=== PATIENT | male | born 1965 | race Caucasian/White ===

== ENCOUNTER 2021-11-23 12:55 | Inpatient (IN) | payer OTHER ==
[~2021-11-23] VITALS: Ht 170.2 cm; Wt 80.8 kg
[2021-11-23 13:45] LABS: BASOPHILS ABSOLUTE AUTO 0.04 K/mm3 (0.00-0.23); BASOPHILS PERCENT AUTO 0 % (0-2); EOSINOPHILS ABSOLUTE AUTO 0.05 K/mm3 (0.00-0.68); EOSINOPHILS PERCENT AUTO 0 % (0-6); Hematocrit 38.7 % (37.0-53.0); Hemoglobin 12.6 g/dL (13.5-17.5); IMMATURE GRAN ABSOLUTE AUTO 0.09 K/mm3 (0.00-0.10); IMMATURE GRAN PERCENT AUTO 1 % (0-1); LYMPHOCYTES ABSOLUTE AUTO 1.59 K/mm3 (0.84-5.20); LYMPHOCYTES PERCENT AUTO 14 % (21-46); MONOCYTES ABSOLUTE AUTO 0.85 K/mm3 (0.16-1.47); MONOCYTES PERCENT AUTO 8 % (4-13); Mean Corpuscular HGB 28.2 pg (26.0-34.0); Mean Corpuscular HGB Conc 32.6 g/dL (31.5-36.5); Mean Corpuscular Volume 87 fL (80-100); Mean Platelet Volume 9.5 fL (9.1-12.4); NEUTROPHILS ABSOLUTE AUTO 8.68 K/mm3 (1.96-9.15); NEUTROPHILS PERCENT AUTO 77 % (41-73); Platelet Count 322 K/mm3 (150-400); RDW Coefficient Variation 12.3 % (11.7-14.2); RDW Standard Deviation 39.1 fL (35.1-46.3); Red Blood Cell Count 4.47 M/mm3 (4.30-5.90)
[2021-11-23 14:10] LABS: Anti-Xa UFH, PHA Monitoring <0.10 IU/mL; International Normalized Ratio 0.98; Prothrombin Time Results 10.3 Sec (9.7-11.5)
[2021-11-23 14:16] LABS: Anion Gap 6 mmol/L (6-16); Blood Urea Nitrogen 23 mg/dL (8-24); Bun/Creatinine Ratio 26.8 (12.0-20.0); CO2, Blood 25 mmol/L (21-32); Calcium, Blood 8.8 mg/dL (8.5-10.1); Chloride, Blood 96 mmol/L (98-108); Creatinine, Blood 0.86 mg/dL (0.60-1.20); Glomerular Filtration Rate >60 (60-); Glucose, Blood 433 mg/dL (70-99); Potassium, Blood 4.2 mmol/L (3.5-5.5); Sodium, Blood 127 mmol/L (136-145)
--- NOTE | 2021-11-23 18:40 | NUR ---
ADMISSION/SHIFT SUMMARY NOTE PT ARRIVED TO PCU FROM ED APPROX 1620, HE IS ALERT AND ORIENTED X 4, SPO2 >95% VIA RA. PT REPORTED PAIN 10/10 UPON ARRIVAL, SEE EMAR FOR PAIN MANAGEMENT. HEPARIN DRIP IS INFUSING PER EMAR ORDERS AT 18UNITS/KG/HR. TELE MONITORING IN PLACE, PT IS SINUS RYTHM 90-110'S. HE DENIED FEELINGS OF CHEST PAIN/PRESSURE AND INDICATED THAT PAIN IS ON RIGHT SIDE OF ABD. PT DENIED FEELINGS OF NAUSEA/VOMITTING. HE CAN VOID USING BEDSIDE URINAL PER REPORT BUT NO OUTPUT NOTED BY THIS NURSE SINCE ARRIVAL TO PCU. SCABS ARE SCATTERED T/O, PATIENT REPORTED THAT WHEN HE IS ANXIOUS, HE PICKS AT HIS SKIN. HE HAS ACHS CBG MONITORING, DR BENNETT CALLED BY THIS NURSE FOR INSULIN COVERAGE, SEE EMAR FOR ORDERS. INSULIN HAS YET TO ARRIVE FROM PHARMACY TO TREAT CBG OF 344. WILL PASS ON TO REPORT. WILL CONTINUE TO MONITOR UNTIL REPORT GIVEN. CALL LIGHT IN REACH.
--- NOTE | 2021-11-24 05:31 | NUR ---
End of shift summary:\ Pt with 10/10 pain to R- Flank, worsens with inspiration, VSS, 2L NC placed over noc for Sleep apnea, otheriwse room air when awake. Hep gtt still infusing, will continue to monitor Jluis Talavera RN
[2021-11-24 06:13] LABS: Hematocrit 35.4 % (37.0-53.0); Hemoglobin 11.5 g/dL (13.5-17.5); Mean Corpuscular HGB 28.2 pg (26.0-34.0); Mean Corpuscular HGB Conc 32.5 g/dL (31.5-36.5); Mean Corpuscular Volume 87 fL (80-100); Mean Platelet Volume 9.5 fL (9.1-12.4); Platelet Count 280 K/mm3 (150-400); RDW Coefficient Variation 12.4 % (11.7-14.2); RDW Standard Deviation 39.5 fL (35.1-46.3); Red Blood Cell Count 4.08 M/mm3 (4.30-5.90)
[2021-11-24 06:39] LABS: Anion Gap 7 mmol/L (6-16); Blood Urea Nitrogen 29 mg/dL (8-24); Bun/Creatinine Ratio 25.2 (12.0-20.0); CO2, Blood 27 mmol/L (21-32); Calcium, Blood 8.7 mg/dL (8.5-10.1); Chloride, Blood 96 mmol/L (98-108); Creatinine, Blood 1.15 mg/dL (0.60-1.20); Glomerular Filtration Rate >60 (60-); Glucose, Blood 298 mg/dL (70-99); Sodium, Blood 130 mmol/L (136-145)
--- NOTE | 2021-11-24 16:14 | NUR ---
SHIFT SUMMARY Pt os a/o x 4 and has c/o right chest/flank pain r/t his PE. He remains on RA with sats in the high 90's and the heparin drip is infusing per pharmacy. He uses the urinal at the beside and was assisted with a bedbath this morning. His sister came to visit this afternoon and he has updated her. He has a good appetite and his blood sugars continue o run high but he reports that this is normal for him and is asymptomatic. He is able to make his needs known and has his call light in reach.
--- NOTE | 2021-11-25 06:31 | NUR ---
SHIFT SUMMARY PT ALERT AND ORIENTED X4. HR ST 100-130'S. 100'S TO START SHIFT BUT INCREASINGLY TACHY. MEDICATED X2 5MG IV LOPRESSOR. AFEBRILE. ON 3L MAINTAINS SATS OVER 92%. DESATS TO MID TO LOW 80'S ON RA. ANXIOUS AT TIMES THROUGHOUT THE NIGHT. FREQUENTLY PULLING OUT O2, TELEMETRY, AND IVS. C/O 10/10 PLEURITIC AND R FLANK PAIN. UNRELIEVED BY PERCOCET OR FENTANYL. RELIEF WITH DILAUDID. HEP GTT INFUSING. IN BED RESTING WITH CALL ALARM AT SIDE. WILL CONTINUE TO MONITOR UNTIL REPORT GIVEN TO DAYSHIFT RN
[2021-11-25 08:29] LABS: BASOPHILS ABSOLUTE AUTO 0.02 K/mm3 (0.00-0.23); BASOPHILS PERCENT AUTO 0 % (0-2); EOSINOPHILS ABSOLUTE AUTO 0.07 K/mm3 (0.00-0.68); EOSINOPHILS PERCENT AUTO 1 % (0-6); Hematocrit 37.8 % (37.0-53.0); Hemoglobin 12.2 g/dL (13.5-17.5); IMMATURE GRAN PERCENT AUTO 1 % (0-1); LYMPHOCYTES ABSOLUTE AUTO 1.28 K/mm3 (0.84-5.20); LYMPHOCYTES PERCENT AUTO 11 % (21-46); MONOCYTES ABSOLUTE AUTO 0.86 K/mm3 (0.16-1.47); MONOCYTES PERCENT AUTO 7 % (4-13); Mean Corpuscular HGB 27.8 pg (26.0-34.0); Mean Corpuscular HGB Conc 32.3 g/dL (31.5-36.5); Mean Corpuscular Volume 86 fL (80-100); Mean Platelet Volume 9.3 fL (9.1-12.4); NEUTROPHILS ABSOLUTE AUTO 9.69 K/mm3 (1.96-9.15); NEUTROPHILS PERCENT AUTO 81 % (41-73); Platelet Count 355 K/mm3 (150-400); RDW Coefficient Variation 12.4 % (11.7-14.2); RDW Standard Deviation 39.3 fL (35.1-46.3); Red Blood Cell Count 4.39 M/mm3 (4.30-5.90); White Blood Cell Count 12.02 K/mm3 (4.00-11.30)
[2021-11-25 08:46] LABS: Anion Gap 6 mmol/L (6-16); Blood Urea Nitrogen 34 mg/dL (8-24); Bun/Creatinine Ratio 27.9 (12.0-20.0); CO2, Blood 28 mmol/L (21-32); Calcium, Blood 9.1 mg/dL (8.5-10.1); Chloride, Blood 98 mmol/L (98-108); Creatinine, Blood 1.22 mg/dL (0.60-1.20); Glomerular Filtration Rate >60 (60-); Glucose, Blood 168 mg/dL (70-99); Phosphorus, Blood 2.8 mg/dL (2.5-4.9); Potassium, Blood 4.3 mmol/L (3.5-5.5); Sodium, Blood 132 mmol/L (136-145)
--- NOTE | 2021-11-25 13:44 | NUR ---
SUMMARY OF CARE Pt is a/o x 4 with ongoing c/o pain to right flank/chest. He has been medicated per Emar. He has required supplemental O2 today continued from last night and is currently on 4 LPM with sats in the mid to high 90's. He has been pulling off his o2 at times and he does desat without the NC but as soon as he puts it back on he recovers quickly. He has also been tachy and Dr Cross was made aware of these changes. Dr Sanford stopped by and gave orders for an EKG which was done and he said he would be reviewing the chart. Pt has a decent appetite but CBGs continue to be elevated and covered with his sliding scale. He uses the urinal at the bedside. He calls appropriately and has his call light in reach. Report given to receiving RN.
--- NOTE | 2021-11-25 14:10 | NUR ---
ASSUMED CARE OF PATIENT. PT RESTING IN BED, UP TO SIDE OF BED WITH URINAL. CONTINUES WITH COMPLAINT OF RIGHT FLANK/CHEST PAIN, WILL MEDICATED PER EMAR. PT A&Ox4, COOPERATIVE WITH CARE. PT ON 4L O2 VIA NC, SPO2 98-100%. TELE SINUS 80-90'S AT THIS TIME. WILL CONTINUE TO MONITOR
[2021-11-26 02:28] LABS: Hematocrit 34.5 % (37.0-53.0); Mean Corpuscular HGB 28.1 pg (26.0-34.0); Mean Corpuscular HGB Conc 31.9 g/dL (31.5-36.5); Mean Corpuscular Volume 88 fL (80-100); Mean Platelet Volume 9.6 fL (9.1-12.4); Platelet Count 344 K/mm3 (150-400); RDW Coefficient Variation 12.7 % (11.7-14.2); RDW Standard Deviation 40.7 fL (35.1-46.3); Red Blood Cell Count 3.92 M/mm3 (4.30-5.90); White Blood Cell Count 11.07 K/mm3 (4.00-11.30)
--- NOTE | 2021-11-26 05:48 | NUR ---
SHIFT SUMMARY [id number] PT SLEPT WELL OVERNIGHT, VSS PER PT TREND. ST ON TELEMETRY. ON 4L NC, ORIENTED X4. HEPARIN GTT RUNNING PER PROVIDER ORDER WITHOUT INTERRUPTION. COMPLAINTS OF R PLEURITIC CHEST PAIN PT REPORTS UNCHANGED FROM ADMISSION. PRN PAIN MEDICATIONS GIVEN WITH RELIEF - SEE EMAR FOR DETAILS. BEDREST. CALL LIGHT WITHIN REACH. WILL CONTINUE TO MONITOR AND PASS ON TO DAY RN.
--- NOTE | 2021-11-26 18:06 | NUR ---
Shift summary: Pt remains A&Ox4. VSS. C/o R pleuritic pain- Dilaudid x3 and Tylenol x1, adequate control of pain per pt. Afebrile. AUO. NO BM. Tolerating current diet. Heparin gtt increased and bolus administered x1 d/t AM hep Xa level- no s/s of bleeding noted. /2 (+) MD ALEX notified and abx adjusted. Weaned supplemental O2 from 4L NC to 2L NC- pt denies any respiratory distress. Frequent rounds to ensure pt safety. Pt encouraged to reposition q2hrs and pressure points offloaded to prevent pressure ulcers, pt verbalized understanding. Pt in no apparent distress at this time. Will continue to monitor until transfer of care to oncoming RN.
[2021-11-27 05:07] LABS: Hematocrit 32.9 % (37.0-53.0); Hemoglobin 10.5 g/dL (13.5-17.5); Mean Corpuscular HGB 28.1 pg (26.0-34.0); Mean Corpuscular HGB Conc 31.9 g/dL (31.5-36.5); Mean Corpuscular Volume 88 fL (80-100); Mean Platelet Volume 9.9 fL (9.1-12.4); Platelet Count 365 K/mm3 (150-400); RDW Coefficient Variation 12.7 % (11.7-14.2); RDW Standard Deviation 40.6 fL (35.1-46.3); Red Blood Cell Count 3.74 M/mm3 (4.30-5.90); White Blood Cell Count 11.25 K/mm3 (4.00-11.30)
[2021-11-27 05:32] LABS: Albumin, Blood 1.6 g/dL (3.4-5.0); Anion Gap 7 mmol/L (6-16); Blood Urea Nitrogen 20 mg/dL (8-24); Bun/Creatinine Ratio 20.6 (12.0-20.0); CO2, Blood 26 mmol/L (21-32); Calcium, Blood 8.9 mg/dL (8.5-10.1); Chloride, Blood 101 mmol/L (98-108); Creatinine, Blood 0.97 mg/dL (0.60-1.20); Glomerular Filtration Rate >60 (60-); Glucose, Blood 174 mg/dL (70-99); Phosphorus, Blood 2.9 mg/dL (2.5-4.9); Potassium, Blood 4.6 mmol/L (3.5-5.5); Sodium, Blood 134 mmol/L (136-145)
--- NOTE | 2021-11-27 06:05 | NUR ---
SHIFT SUMMARY PT SLEPT INTERMITTENTLY, ORIENTED X4, IRRITABLE AT TIMES. HR IN 110S-130S. DR. MONIQUE NOTIFIED OVERNIGHT OF HR CONSISTENTLY IN 130S AND INCREASE TO 8L HFNC PER RT MANAGEMENT FOR DESATURATION. OTHER VSS. ORDER FOR IV LOPRESSOR X1 (SEE CRITICAL VALUE NOTIFICATION AND EMAR FOR DETAILS). PAIN CONTROLLED WITH PO PAIN MEDS. WILL CONTINUE TO MONITOR CLOSELY AND PASS ON TO DAY RN.
[2021-11-27 08:46] LABS: PCO2 Arterial 39.1 mmHg (35-45); PO2 Arterial 60.2 mmHg (80-100); pH Blood Arterial 7.45 (7.35-7.45)
--- NOTE | 2021-11-27 17:32 | NUR ---
Shift summary: Pt remains A&Ox4, anxious at times. Afebrile. Frequent c/o R sided pleuritic pain- Diluadid x2 and Tylenol x2, adequate control of pain per pt. AUO. No BM- c/o constipation, yet refusing Miralax. Tolerating current diet. Xarelto to be started tonight at 18:00, heparin gtt will be discontinued at that time- no current s/s of bleeding noted. Weaned from 8L NC to RA- no s/s of respiratory distress, [place]. Tentative d/c home tomorrow. Frequent rounds to ensure pt safety. Pt encouraged to reposition q2hrs and offload pressure points to prevent pressure ulcers, pt verbalized understanding. Pt in no apparent distress at this time. Will continue to monitor until transfer of care to oncoming RN.
[2021-11-28 05:45] LABS: Hematocrit 31.9 % (37.0-53.0); Hemoglobin 10.1 g/dL (13.5-17.5); Mean Corpuscular HGB 27.9 pg (26.0-34.0); Mean Corpuscular HGB Conc 31.7 g/dL (31.5-36.5); Mean Corpuscular Volume 88 fL (80-100); Mean Platelet Volume 9.4 fL (9.1-12.4); Platelet Count 363 K/mm3 (150-400); RDW Coefficient Variation 12.7 % (11.7-14.2); RDW Standard Deviation 41.5 fL (35.1-46.3); Red Blood Cell Count 3.62 M/mm3 (4.30-5.90); White Blood Cell Count 9.42 K/mm3 (4.00-11.30)
[2021-11-28] MEDS ORDERED: AZIT500 PO (11:13)
[2021-11-28] MEDS ORDERED: HYDMOR2 PO (11:14)
[2021-11-28] MEDS ORDERED: HUMALOG KW100 UNIT/1 SC (11:18)
[2021-11-28] MEDS ORDERED: XARELTO20 MG PO ×2 (11:20→11:21)
[2021-11-28] MEDS ORDERED: LACT PO (11:23)
[2021-11-28] MEDS ORDERED: Ventolin5 MG/1 ML INH (11:24)
[2021-11-28] MEDS ORDERED: CEFD300 PO (11:25)
--- NOTE | 2021-11-28 18:43 | NUR ---
Shift summary: Pt remains A&Ox4. Afebrile.VSS. C/o R sided pleuritic pain- Dilaudid x2, adequate control of pain per pt. BRP with AUO. No BM. Tolerating current diet. Home O2 eval completed, supplies delivered to pt's room. Pending discharge home, awaiting taxi ride time. Discharge education provided, pt verbalized understanding. Frequent rounds to ensure pt safety. Pt encouraged to reposition q2hrs and offload pressure points to prevent pressure ulcers, pt verbalized understanding. Pt in no apparent distress at this time. Will continue to monitor until transfer of care.
--- NOTE | 2021-11-28 19:00 | NUR ---
Discharge Delay: Message left for child day care teacher at 1300 in attempts to coordinate home oxygen to be set up. Some time later the child day care teacher called the primary RN back, she stated the patient needed different ICD 10 code to qualify him for the home oxygen because the insurance would only cover a portion of the home oxygen and the patient was only able to afford about one month of the cost-per child day care teacher. About an hour later I communicated the barriers to discharge to Dr. Cross and asked if she could coordinate with the Folder Gluer Operator to assist her with order completion and any clarifying questions she may have. A few hours after this I called the care mamsunil to inquire as to the status of the home oxygen being set up, by this time it was around 1600 or 1630. She stated she was sending the orders over to [facility] for the oxygen to be set up. Around 1700 the oxygen was delivered. The dry charge process attendant attempted to set up a ride home through [facility], at 1900 this service was still unable to provide details as to why we didn't have transportation set up or an ETA on when we would have transportation available.
--- NOTE | 2021-11-28 21:25 | NUR ---
Pt discharged ~2119 with all belongings and after visit summary/ scripts. VSS, adequate for discharge
== END 2021-11-28 21:19 | disposition home or self-care (01) | DRG 175 ==
LOC: ER 12:55 → PCU 15:23
PROVIDERS: Emergency Medicine; ADMIT Internal Medicine
DX: I26.92 Saddle embolus of pulmonary artery without acute cor pulmonale (principal); J96.01 Acute respiratory failure with hypoxia; A41.9 Sepsis, unspecified organism; J18.9 Pneumonia, unspecified organism; E87.1 Hypo-osmolality and hyponatremia; Z66 Do not resuscitate; I95.9 Hypotension, unspecified; E11.9 Type 2 diabetes mellitus without complications; M19.90 Unspecified osteoarthritis, unspecified site; I25.10 Atherosclerotic heart disease of native coronary artery without angina pectoris; G43.909 Migraine, unspecified, not intractable, without status migrainosus; F17.210 Nicotine dependence, cigarettes, uncomplicated; F32.A Depression, unspecified; Z86.73 Personal history of transient ischemic attack (TIA), and cerebral infarction without residual deficits; Z85.828 Personal history of other malignant neoplasm of skin; I25.2 Old myocardial infarction; Z95.1 Presence of aortocoronary bypass graft; Z90.49 Acquired absence of other specified parts of digestive tract; Z98.890 Other specified postprocedural states; Z79.4 Long term (current) use of insulin; Z79.899 Other long term (current) drug therapy
CPT/HCPCS: 36415; 36600; 71046; 80048; 80069; 82803; 82947; 83036; 83605; 83880; 83930; 84145; 84484; 85025; 85027; 85520; 85610; 85730; 87040; 87077; 87186; 90686; 93005; 93010; 93306; 94760; 94761; 96365; 99285-25; A9270; C1751; J0456; J0696; J1170; J1644; J1815; J1885; J2405; J3010; J3370; J7050

== ENCOUNTER → 2021-11-23 | Outpatient (CLI) | payer OTHER ==
[~2021-11-23] MED LIST: ACET325 PO; AMIT10 PO; ANTOXYBENA BOTHEARS; ASPI325 PO; ASPI81CH PO; ASPI81EC PO; ATEN25 PO; ATOR10 PO; ATOR20 PO; ATOR40TA PO; ATOR80 PO; Aspirin325 MG PO; BACPOLTO30 TOP; BASAGLAR K100 UNIT/1 SC; BENZ1 PO; Bactrim Ds Tab1 EACH PO; CAND16 PO; CARV3.125 PO; CARV6.25 PO; CEFAZOLIN2 GM/50 M3 IV; CEPH500 PO; CLON2 PO; CLOP75 PO; CYCL10 PO; Ciprodex Otic7.5 ML BOTHEARS; DIAZ2 PO; DIAZ5 PO; DICY20 PO; ELIQUIS5 MG PO; GLIM2 PO; HALO5 PO; HYDACE10B PO; HYDACE5 PO; HYDMOR2; HYDMOR2 PO; HYDPAM50 PO; IBUP600 PO; IBUP800 PO; INDO50 PO; INSUASPI; INSUASPI SUBQ; INSULANI SC; INSULANPEN SC; INSULANPEN SQ; KETO10 PO; LISHYD1012 PO; LORA.5 PO; LORA1 PO; LORA2 PO; Lantus100 UNIT/1 SC; Lisinopril2.5 MG PO; MECL25 PO; METO25ER PO; METO50 PO; METO50ER PO; MUPI2TO TOP; NAPR500 PO; NEBI5 PO; NICO21TP TOP; NITR.4SL SL; NITR.6SL SL; Naprosyn500 MG PO; OMEP10ER PO; OXYACE5T PO; OXYACE7.5T PO; PARO20 PO; PROM25 PO; QUET200 PO; QUET25 PO; QUET300 PO; ROXICODONE5 MG PO; RXTRAM50 PO; SULTRIDS PO; TRAM50 PO; Ultram50 MG PO; VISBIOME PROBIOTIC PO; [UNRECOGNIZED DRUG - REMARK]; [UNRECOGNIZED DRUG - REMARK]
[2021-11-23 10:50] LABS: BASOPHILS ABSOLUTE AUTO 0.04 K/mm3 (0.00-0.23); BASOPHILS PERCENT AUTO 0 % (0-2); EOSINOPHILS ABSOLUTE AUTO 0.07 K/mm3 (0.00-0.68); EOSINOPHILS PERCENT AUTO 1 % (0-6); Hematocrit 39.4 % (37.0-53.0); Hemoglobin 13.1 g/dL (13.5-17.5); IMMATURE GRAN ABSOLUTE AUTO 0.12 K/mm3 (0.00-0.10); IMMATURE GRAN PERCENT AUTO 1 % (0-1); LYMPHOCYTES ABSOLUTE AUTO 1.59 K/mm3 (0.84-5.20); LYMPHOCYTES PERCENT AUTO 14 % (21-46); MONOCYTES PERCENT AUTO 7 % (4-13); Mean Corpuscular HGB 28.4 pg (26.0-34.0); Mean Corpuscular HGB Conc 33.2 g/dL (31.5-36.5); Mean Corpuscular Volume 85 fL (80-100); Mean Platelet Volume 9.3 fL (9.1-12.4); NEUTROPHILS ABSOLUTE AUTO 8.54 K/mm3 (1.96-9.15); NEUTROPHILS PERCENT AUTO 77 % (41-73); Platelet Count 335 K/mm3 (150-400); RDW Coefficient Variation 12.4 % (11.7-14.2); RDW Standard Deviation 38.3 fL (35.1-46.3); Red Blood Cell Count 4.62 M/mm3 (4.30-5.90); White Blood Cell Count 11.16 K/mm3 (4.00-11.30)
[2021-11-23 11:00] LABS: Alanine Aminotransfer (ALT/SGP 19 U/L (12-78); Albumin, Blood 2.5 g/dL (3.4-5.0); Albumin/Globulin Ratio 0.5 (0.8-1.8); Alk Phos 173 U/L (40-126); Anion Gap 8 mmol/L (6-16); Aspartate Aminotrans (AST/SGOT 11 U/L (12-37); Bilirubin, Total 0.4 mg/dL (0.1-1.0); Blood Urea Nitrogen 24 mg/dL (8-24); Bun/Creatinine Ratio 19.8 (12.0-20.0); CO2, Blood 26 mmol/L (21-32); Calcium, Blood 9.4 mg/dL (8.5-10.1); Chloride, Blood 92 mmol/L (98-108); Creatinine, Blood 1.21 mg/dL (0.60-1.20); Globulin, Blood 5.4 g/dL (2.2-4.0); Glomerular Filtration Rate >60 (60-); Glucose, Blood 494 mg/dL (70-99); Potassium, Blood 4.4 mmol/L (3.5-5.5); Sodium, Blood 126 mmol/L (136-145); Total Protein, Blood 7.9 g/dL (6.4-8.2)
== END ==
LOC: LAB SHORT 10:45
PROVIDERS: Physician Assistant
DX: R07.89 Other chest pain (principal)
CPT/HCPCS: 80053; 84484; 85025; 85379

== ENCOUNTER → 2022-06-25 | Outpatient (CLI) | payer OTHER ==
[~2022-06-25] MED LIST changes: +AZIT500 PO; +CEFD300 PO; +HUMALOG KW100 UNIT/1 SC; +LACT PO; +Ventolin5 MG/1 ML INH; +XARELTO20 MG PO
== END | disposition home or self-care (01) ==
LOC: LAB SHORT 17:26 → LAB 17:26
DX: L02.811 Cutaneous abscess of head [any part, except face] (principal)
CPT/HCPCS: 87070; 87075; 87077; 87147; 87186; 87205

== ENCOUNTER 2023-03-24 12:09 | Emergency (ER) | payer OTHER ==
[~2023-03-24] VITALS: Ht 170.2 cm; Wt 90.7 kg
[2023-03-24] MEDS ORDERED: SULFAMETHOXAZO1 EAC1 PO (12:21)
[2023-03-24] MEDS ORDERED: IBU800 M1 PO (12:21)
[2023-03-24 12:55] LABS: BASOPHILS ABSOLUTE AUTO 0.02 K/mm3 (0.00-0.23); BASOPHILS PERCENT AUTO 0 % (0-2); EOSINOPHILS ABSOLUTE AUTO 0.07 K/mm3 (0.00-0.68); EOSINOPHILS PERCENT AUTO 1 % (0-6); Hematocrit 39.9 % (37.0-53.0); Hemoglobin 12.7 g/dL (13.5-17.5); IMMATURE GRAN ABSOLUTE AUTO 0.03 K/mm3 (0.00-0.10); IMMATURE GRAN PERCENT AUTO 0 % (0-1); LYMPHOCYTES ABSOLUTE AUTO 0.96 K/mm3 (0.84-5.20); LYMPHOCYTES PERCENT AUTO 14 % (21-46); MONOCYTES ABSOLUTE AUTO 0.54 K/mm3 (0.16-1.47); MONOCYTES PERCENT AUTO 8 % (4-13); Mean Corpuscular HGB 27.6 pg (26.0-34.0); Mean Corpuscular HGB Conc 31.8 g/dL (31.5-36.5); Mean Corpuscular Volume 87 fL (80-100); Mean Platelet Volume 10.1 fL (9.1-12.4); NEUTROPHILS ABSOLUTE AUTO 5.25 K/mm3 (1.96-9.15); NEUTROPHILS PERCENT AUTO 76 % (41-73); Platelet Count 240 K/mm3 (150-400); RDW Coefficient Variation 13.2 % (11.7-14.2); RDW Standard Deviation 41.2 fL (35.1-46.3); White Blood Cell Count 6.87 K/mm3 (4.00-11.30)
[2023-03-24 13:14] LABS: Albumin, Blood 2.2 g/dL (3.4-5.0); Albumin/Globulin Ratio 0.5 (0.8-1.8); Bilirubin, Total 0.1 mg/dL (0.1-1.0); Bun/Creatinine Ratio 18.5 (12.0-20.0); Calcium, Blood 8.4 mg/dL (8.5-10.1); Creatinine, Blood 2.16 mg/dL (0.60-1.20); Globulin, Blood 4.6 g/dL (2.2-4.0); Potassium, Blood 5.3 mmol/L (3.5-5.5); Total Protein, Blood 6.8 g/dL (6.4-8.2)
[2023-03-24 16:19] VITALS: BP 78/66
== END 2023-03-24 16:23 | disposition home or self-care (01) ==
LOC: ER 12:09
PROVIDERS: Emergency Medicine
DX: R07.2 Precordial pain (principal); N17.9 Acute kidney failure, unspecified; L03.116 Cellulitis of left lower limb; E11.9 Type 2 diabetes mellitus without complications; E78.5 Hyperlipidemia, unspecified; I10 Essential (primary) hypertension; I25.2 Old myocardial infarction; F17.210 Nicotine dependence, cigarettes, uncomplicated; Z86.711 Personal history of pulmonary embolism; Z86.73 Personal history of transient ischemic attack (TIA), and cerebral infarction without residual deficits; Z88.5 Allergy status to narcotic agent; Z79.4 Long term (current) use of insulin
CPT/HCPCS: 71045; 71260; 80053; 83880; 84484; 85025; 93005; 93010; 96374-59; 99285-25; J3010; J7030; Q9967

== ENCOUNTER 2023-03-31 12:31 | Inpatient (IN) | payer OTHER ==
[~2023-03-31] VITALS: Ht 170.2 cm; Wt 95.7 kg
[~2023-03-31 12:31] MED LIST changes: +IBU800 M1 PO; +SULFAMETHOXAZO1 EAC1 PO
[2023-03-31 15:18] LABS: BASOPHILS ABSOLUTE AUTO 0.03 K/mm3 (0.00-0.23); BASOPHILS PERCENT AUTO 1 % (0-2); EOSINOPHILS ABSOLUTE AUTO 0.06 K/mm3 (0.00-0.68); EOSINOPHILS PERCENT AUTO 1 % (0-6); Hematocrit 46.2 % (37.0-53.0); Hemoglobin 14.5 g/dL (13.5-17.5); IMMATURE GRAN ABSOLUTE AUTO 0.05 K/mm3 (0.00-0.10); IMMATURE GRAN PERCENT AUTO 1 % (0-1); LYMPHOCYTES ABSOLUTE AUTO 1.25 K/mm3 (0.84-5.20); LYMPHOCYTES PERCENT AUTO 19 % (21-46); MONOCYTES ABSOLUTE AUTO 0.41 K/mm3 (0.16-1.47); MONOCYTES PERCENT AUTO 6 % (4-13); Mean Corpuscular HGB 27.3 pg (26.0-34.0); Mean Corpuscular HGB Conc 31.4 g/dL (31.5-36.5); Mean Corpuscular Volume 87 fL (80-100); Mean Platelet Volume 10.1 fL (9.1-12.4); NEUTROPHILS ABSOLUTE AUTO 4.82 K/mm3 (1.96-9.15); NEUTROPHILS PERCENT AUTO 73 % (41-73); Platelet Count 265 K/mm3 (150-400); RDW Coefficient Variation 13.7 % (11.7-14.2); RDW Standard Deviation 43.5 fL (35.1-46.3); Red Blood Cell Count 5.31 M/mm3 (4.30-5.90); White Blood Cell Count 6.62 K/mm3 (4.00-11.30)
[2023-03-31 15:25] LABS: Albumin, Blood 2.7 g/dL (3.4-5.0); Albumin/Globulin Ratio 0.6 (0.8-1.8); Bilirubin, Total 0.2 mg/dL (0.1-1.0); Bun/Creatinine Ratio 23.4 (12.0-20.0); Calcium, Blood 8.8 mg/dL (8.5-10.1); Creatinine, Blood 1.37 mg/dL (0.60-1.20); Globulin, Blood 4.6 g/dL (2.2-4.0); Potassium, Blood 5.4 mmol/L (3.5-5.5); Total Protein, Blood 7.3 g/dL (6.4-8.2)
[2023-03-31 19:47] VITALS: BP 152/100
[2023-03-31] MEDS ORDERED: CODACE30 PO (20:03)
[2023-03-31] MEDS ORDERED: IBU800 M1 (20:03)
[2023-03-31] MEDS ORDERED: [UNRECOGNIZED DRUG - CODE] (20:04)
[2023-04-01] VITALS (13 sets, daily range): BP systolic 88–167; BP diastolic 59–107
[2023-04-01 03:48] LABS: Hematocrit 40.5 % (37.0-53.0); Hemoglobin 12.8 g/dL (13.5-17.5); Mean Corpuscular HGB 27.1 pg (26.0-34.0); Mean Corpuscular HGB Conc 31.6 g/dL (31.5-36.5); Mean Corpuscular Volume 86 fL (80-100); Mean Platelet Volume 9.2 fL (9.1-12.4); Platelet Count 255 K/mm3 (150-400); RDW Coefficient Variation 13.5 % (11.7-14.2); RDW Standard Deviation 42.2 fL (35.1-46.3); Red Blood Cell Count 4.73 M/mm3 (4.30-5.90); White Blood Cell Count 5.82 K/mm3 (4.00-11.30)
[2023-04-01 04:05] LABS: Calcium, Blood 8.6 mg/dL (8.5-10.1); Creatinine, Blood 1.5 mg/dL (0.60-1.20); Potassium, Blood 4.2 mmol/L (3.5-5.5)
--- NOTE | 2023-04-01 06:16 | NUR ---
SHIFT SUMMARY ADMIT FOR LEFT FOOT ULCER W/ SURGICAL CONSULT. HX OF DIABETIC NEUROPATHY AND MRSA. PT REPORTS MINIMAL FEELING TO BLL FEET AND WAS UNAWARE OF WOUND. CULTURE OBTAINED. PT MEDICATED W/ LASIX PRIOR TO ADMIT TO FLOOR W/ GOOD URINE OUTPUT AND HAS ALLOWED PT TO SLEEP T/O NIGHT. 4+ EDEMA TO BLLE AND SCROTAL SWELLING/ EDEMA NOTED. PT REPORTS SCROTAL EDEMA NEW OF 03/30 AND ABDOMINAL DISTENTION NOTED. PT REPORTS EXTENSIVE CARDIAC HX. A&OX4, CURRENT SMOKER AND INFORMED OF FACILITY IGNITION POLICIES IN PLACE. CALL LIGHT W/IN REACH. WILL REPORT OFF TO ONCOMING SHIFT.
--- NOTE | 2023-04-01 11:28 | NUR ---
PT OUT OF ROOM FOR PROCEDURE.
--- NOTE | 2023-04-01 11:49 | NUR ---
PT HAS 20G IV TO RIGHT FOREARM THAT FLUSHES WELL AND FLOWS TO GRAVITY.
--- NOTE | 2023-04-01 13:24 | NUR ---
PATIENT CAME BACK FROM PACU TODAY AT 1330. POD 0 LEFT ANKLE I&D PATIENT IS A&OX4. VS ARE WNL AND IS ON RA. PATIENT DENIES PAIN OR NAUSEA AT THIS TIME. HIS LEFT ANKLE HAS A HARD SPLINT WITH RICHARD WRAP THAT IS C/D/I. HE IS ABLE TO MOVE ALL FINGERS AND TOES WHEN ASKED. DENIES NUMBNESS OR TINGLING IN ALL EXTREMITIES. HE IS TOLERATING SMALL AMOUNTS OF PO INTAKE AT THIS TIME. HE IS LAYING IN BED WITH CALL LIGHT IN REACH.
--- NOTE | 2023-04-01 14:12 | NUR ---
POST OP SHOE PROVIDED TO PATIENT. EDUCATED ON USE. PT VERBALIZES UNDERSTANDING AND IS USING AT THIS TIME. CONTINUES TO DENY PAIN.
--- NOTE | 2023-04-01 16:57 | NUR ---
SHIFT SUMMARY S/P I&D L FOOT. PT HAS BEEN UP AND AMBULATING WITH POST OP BOOT ON. PAIN CONTROLLED PER EMAR. PT DENIES ANY FURTHER NEEDS. NUMBNESS TO BLE AT BASELINE AT THIS TIME. IND IN ROOM VOIDING, TOLERATING PO WELL. THERAPY IN TO SEE PATIENT TODAY. IV ABX INFUSING PER ORDERS
[2023-04-01 22:09] LABS: HEMOGLOBIN A1C 11.2 % (4.8-5.6)
[2023-04-02 00:24] VITALS: BP 151/95
[2023-04-02 04:09] VITALS: BP 141/84
[2023-04-02 04:14] LABS: BASOPHILS ABSOLUTE AUTO 0.03 K/mm3 (0.00-0.23); BASOPHILS PERCENT AUTO 1 % (0-2); EOSINOPHILS ABSOLUTE AUTO 0.13 K/mm3 (0.00-0.68); EOSINOPHILS PERCENT AUTO 2 % (0-6); Hematocrit 41.7 % (37.0-53.0); Hemoglobin 13.6 g/dL (13.5-17.5); IMMATURE GRAN ABSOLUTE AUTO 0.03 K/mm3 (0.00-0.10); IMMATURE GRAN PERCENT AUTO 1 % (0-1); LYMPHOCYTES ABSOLUTE AUTO 1.71 K/mm3 (0.84-5.20); LYMPHOCYTES PERCENT AUTO 28 % (21-46); MONOCYTES ABSOLUTE AUTO 0.47 K/mm3 (0.16-1.47); MONOCYTES PERCENT AUTO 8 % (4-13); Mean Corpuscular HGB 27.3 pg (26.0-34.0); Mean Corpuscular HGB Conc 32.6 g/dL (31.5-36.5); Mean Corpuscular Volume 84 fL (80-100); Mean Platelet Volume 9.2 fL (9.1-12.4); NEUTROPHILS ABSOLUTE AUTO 3.74 K/mm3 (1.96-9.15); NEUTROPHILS PERCENT AUTO 61 % (41-73); Platelet Count 258 K/mm3 (150-400); RDW Coefficient Variation 13.3 % (11.7-14.2); RDW Standard Deviation 39.8 fL (35.1-46.3); Red Blood Cell Count 4.98 M/mm3 (4.30-5.90); White Blood Cell Count 6.11 K/mm3 (4.00-11.30)
[2023-04-02 04:49] LABS: Albumin, Blood 2.3 g/dL (3.4-5.0); Anion Gap 5 mmol/L (6-16); Blood Urea Nitrogen 24 mg/dL (8-24); Bun/Creatinine Ratio 15.3 (12.0-20.0); CO2, Blood 31 mmol/L (21-32); Calcium, Blood 8.6 mg/dL (8.5-10.1); Chloride, Blood 101 mmol/L (98-108); Creatinine, Blood 1.57 mg/dL (0.60-1.20); Glomerular Filtration Rate 51 (60-); Glucose, Blood 130 mg/dL (70-99); Magnesium, Blood 1.3 mg/dL (1.6-2.4); Phosphorus, Blood 4.1 mg/dL (2.5-4.9); Potassium, Blood 3.7 mmol/L (3.5-5.5); Sodium, Blood 137 mmol/L (136-145)
--- NOTE | 2023-04-02 05:33 | NUR ---
SHIFT SUMMARY PT A&OX4, AND COOPERATIVE WITH CARE. NO ACUTE CHANGES. MEDICATING FOR PAIN WITH PO DILAUDID/TYLENOL. TOLERATING PO INTAKE. VOIDING LARGE AMOUNTS OF YELLOW/CLEAR URINE. INDEPENDENT IN ROOM/BATHROOM. RICHARD WRAP/LING TO L FOOT C/D/I. CALLS APPROPRIATELY, CALL LIGHT WITHIN REACH.
[2023-04-02 07:16] VITALS: BP 114/75
--- NOTE | 2023-04-02 10:00 | NUR ---
PT ASSESSED FOR IGNITION SOURCES, NO FINDINGS.
[2023-04-02 14:17] VITALS: BP 126/80
--- NOTE | 2023-04-02 16:48 | NUR ---
SHIFT SUMMARY PT IS POD#1 FROM L FOOD I&D. PT IS A SBA WHEN OOB. PAIN MANAGED WITH PO PAIN MEDICATION. PT IS GETTING IV ABX. NO CHANGES TO REPORT THIS SHIFT. WILL MONITOR UNTIL REPORT TO PHU PHILLIPS.
[2023-04-02 19:40] VITALS: BP 138/98
[2023-04-03 03:32] VITALS: BP 120/71
--- NOTE | 2023-04-03 04:26 | NUR ---
SHIFT SUMMARY PT HAS RESTED MOST OF THE NIGHT, POD 1 I&D OF LEFT FOOT. AFFECTED FOOT WRAPPED WITH RICHARD WRAP, C/D/I. PT REPORTS N/T IN BOTH FEET AT BASELINE. PT HAS BEEN INDEPENDENT IN THE ROOM. VITALS STABLE. IV ANTIBIOTICS CONTINUED. FIRE RISK ASSESSED THIS SHIFT. PT EDUCATED ON FIRE RISKS AND IGNITION SOURCES. PT DENIES HAVING IGNITION SOURCES.
[2023-04-03 05:45] LABS: Albumin, Blood 2.3 g/dL (3.4-5.0); Anion Gap 6 mmol/L (6-16); Blood Urea Nitrogen 23 mg/dL (8-24); Bun/Creatinine Ratio 15.6 (12.0-20.0); CO2, Blood 30 mmol/L (21-32); Calcium, Blood 8.5 mg/dL (8.5-10.1); Chloride, Blood 102 mmol/L (98-108); Creatinine, Blood 1.47 mg/dL (0.60-1.20); Glomerular Filtration Rate 55 (60-); Glucose, Blood 92 mg/dL (70-99); Magnesium, Blood 1.7 mg/dL (1.6-2.4); Phosphorus, Blood 3.8 mg/dL (2.5-4.9); Potassium, Blood 3.8 mmol/L (3.5-5.5); Sodium, Blood 138 mmol/L (136-145)
[2023-04-03 07:40] VITALS: BP 152/99
--- NOTE | 2023-04-03 10:30 | NUR ---
FIRE SAFETY EDUCATION PT EDUCATED ON FIRE SAFETY. VERBALIZED UNDERSTANDING. DENIES POSSESSION OF ANY LIGHTERS, MATCHES, CIGARETTES, ETC.
[2023-04-03 12:42] VITALS: BP 143/94
[2023-04-03 15:35] VITALS: BP 156/98
--- NOTE | 2023-04-03 16:50 | NUR ---
SUMMARY NO ACUTE CHANGES T/O SHIFT. PT NOTED TO BE OOB W/O POST OP SHOE. PT EDUCATED ON NEED FOR USING POST OP SHOE WHEN AMBULATING OR TRANSFERRING. PT VERBALIZED UNDERSTANDING. INEPENDENT IN ROOM. CALL LIGHT IN REACH.
[2023-04-03 20:31] VITALS: BP 133/87
[2023-04-04 04:21] VITALS: BP 142/87
[2023-04-04 04:47] LABS: Hematocrit 43.7 % (37.0-53.0); Hemoglobin 13.6 g/dL (13.5-17.5); Mean Corpuscular HGB 26.8 pg (26.0-34.0); Mean Corpuscular HGB Conc 31.1 g/dL (31.5-36.5); Mean Corpuscular Volume 86 fL (80-100); Mean Platelet Volume 9.6 fL (9.1-12.4); Platelet Count 232 K/mm3 (150-400); RDW Coefficient Variation 13.2 % (11.7-14.2); RDW Standard Deviation 41.2 fL (35.1-46.3); Red Blood Cell Count 5.08 M/mm3 (4.30-5.90); White Blood Cell Count 5.74 K/mm3 (4.00-11.30)
[2023-04-04 05:15] LABS: Calcium, Blood 8.9 mg/dL (8.5-10.1); Creatinine, Blood 1.33 mg/dL (0.60-1.20); Potassium, Blood 3.7 mmol/L (3.5-5.5)
[2023-04-04 07:11] VITALS: BP 122/83
--- NOTE | 2023-04-04 07:52 | NUR ---
SUMMARY NO ACUTE CHANGES .
[2023-04-04 15:16] VITALS: BP 148/97
--- NOTE | 2023-04-04 19:48 | NUR ---
SHIFT SUMMARY POD3 L FOOT I&D, A/OX4, VSS, TOLERATING PO, PAIN MANAGED PER EMAR, INDEPENDENT IN THE ROOM, CARDIOLOGY CONSULTED TODAY. DISCUSSED THE CLEAN AIR ACT OF 1980 WHICH PROHIBITS SMOKING INDOORS IN [place], PT IS A SMOKING BUT DENIES HAVING ANY IGNITION SOURCES ON HIM CURRENTLY. CURRENTLY REFUSING NICOTINE PATCH HE SAYS THEY MAKE HIM LOOPY. NO ACUTE EVENTS THIS SHIFT, CALL LIGHT IN REACH, REPORT GIVEN TO PHU PHILLIPS.
[2023-04-04 20:16] VITALS: BP 146/94
[2023-04-05 04:03] VITALS: BP 157/99
--- NOTE | 2023-04-05 05:10 | NUR ---
EOS NOTE: PATIENT A/OX4, INDEPENDENT IN THE ROOM, ROOM AIR, CONTINENT OF BOWEL AND BLADDER. DRESSING CHANGED TO L FOOT X3 THIS SHIFT, PATIENT STATED IT KEPT FALLING OFF. REPLACED PER MD ORDER, DRESSING TO BE CHANGED EVERY OTHER DAY OR PRN. PATIENT STATED CURRENT PAIN MEDICATION ORDERS DO NOT ADEQUATELY TREAT HIS PAIN, PATIENT DID REST QUIETLY THROUGHOUT THE NIGHT. REQUESTED PAIN MEDICATION ONCE, SEE MAR FOR PAIN MED ADMINISTRATION. PATIENT VERY ADAMANTON DISCHARGING TODAY. MD AWARE, WILL CONTINUE TO MONITOR.
[2023-04-05 07:24] VITALS: BP 148/102
[2023-04-05] MEDS ORDERED: ASPI81CH PO (12:13)
[2023-04-05] MEDS ORDERED: CARV3.125 PO (12:14)
[2023-04-05] MEDS ORDERED: ATOR80 PO (12:14)
[2023-04-05] MEDS ORDERED: CLOP75 PO (12:15)
[2023-04-05] MEDS ORDERED: GABA300 PO (12:15)
[2023-04-05] MEDS ORDERED: HYDMOR2 PO (12:16)
[2023-04-05] MEDS ORDERED: LISI5 PO (12:16)
[2023-04-05] MEDS ORDERED: CEPHALEXIN125 MG/5 M PO (12:17)
--- NOTE | 2023-04-05 12:46 | NUR ---
DISCHARGE SUMMARY POD4 L FOOT I&D, A/O X4, VSS, TOLERATING PO, PAIN WELL MANAGED, INDEPENDENT IN HIS ROOM, L FOOT DRESSING CHANGED OUT WITH NEW KERLEX AND RICHARD WRAP, PT PROVIDED EXTRA DRESSING SUPPLIES IN CASE HE NEEDS TO CHANGE IT AT HOME. PT IS A SMOKER BUT HAS GRACIOUSLY AGREED TO ABSTAIN FROM SMOKING IN OUR FACILITY SO HE REMAINS COMPLIANT WITH THE CLEAN AIR ACT OF 1980 THAT PROHIBITS SMOKING IN DOORS IN [place]. NO IGNITION SOURCES NOTED AND NONE BEING HELD IN HIS LOCK BOX. DISCUSSED DISCHARGE INFORMATION WITH THE PATIENT INCLUDING HOME CARE, MEDICATIONS WHICH WERE FAXED TO [facility] IN [place], AND FOLLOW UP APPOINTMENTS WITH PODIETRY. IV ACCESS REMOVED, PT REPORTS DESIRE TO SMOKE AND EAT ORANGE CHICKEN BUT WILL WAIT TILL HE GETS HOME. NO QUESTIONS AT THIS TIME, ESCORTED OUT VIA WC TO PRIVATE AUTO TO GO HOME.
== END 2023-04-05 13:03 | disposition home or self-care (01) | DRG 628 ==
LOC: ER 12:31 → SURS 12:32
PROVIDERS: Emergency Medicine; Internal Medicine; Physician Assistant; Podiatrist; ADMIT Internal Medicine
PROC: 0H9NXZZ Drainage of Left Foot Skin, External Approach (ICD-10-PCS; 2023-04-01)
PROC: 0QBP0ZZ Excision of Left Metatarsal, Open Approach (ICD-10-PCS; principal; 2023-04-01 12:00)
DX: E11.621 Type 2 diabetes mellitus with foot ulcer (principal); I50.21 Acute systolic (congestive) heart failure; L03.116 Cellulitis of left lower limb; E11.42 Type 2 diabetes mellitus with diabetic polyneuropathy; I11.0 Hypertensive heart disease with heart failure; M19.90 Unspecified osteoarthritis, unspecified site; E78.5 Hyperlipidemia, unspecified; F31.9 Bipolar disorder, unspecified; E87.5 Hyperkalemia; L97.522 Non-pressure chronic ulcer of other part of left foot with fat layer exposed; I34.0 Nonrheumatic mitral (valve) insufficiency; I25.5 Ischemic cardiomyopathy; F17.210 Nicotine dependence, cigarettes, uncomplicated; J44.9 Chronic obstructive pulmonary disease, unspecified; I25.10 Atherosclerotic heart disease of native coronary artery without angina pectoris; N17.9 Acute kidney failure, unspecified; B95.61 Methicillin susceptible Staphylococcus aureus infection as the cause of diseases classified elsewhere; E11.649 Type 2 diabetes mellitus with hypoglycemia without coma; E83.42 Hypomagnesemia; Z79.4 Long term (current) use of insulin; Z88.5 Allergy status to narcotic agent; Z79.01 Long term (current) use of anticoagulants; Z79.899 Other long term (current) drug therapy; I25.2 Old myocardial infarction; Z86.711 Personal history of pulmonary embolism; Z95.5 Presence of coronary angioplasty implant and graft; Z86.73 Personal history of transient ischemic attack (TIA), and cerebral infarction without residual deficits; Z95.1 Presence of aortocoronary bypass graft; Z98.890 Other specified postprocedural states; Z86.59 Personal history of other mental and behavioral disorders; Z90.49 Acquired absence of other specified parts of digestive tract
CPT/HCPCS: 36415; 71045; 73620; 73701; 80048; 80053; 80069; 82947; 83036; 83735; 83880; 85025; 85027; 87040; 87070; 87071; 87075; 87077; 87147; 87186; 87205; 93306; 94760; 96365-59; 96366; 96375; 96375-59; 96376; 97116; 97162; 97530; 99285-25; A9270; G0378; J0690; J1650; J1815; J1940; J2001; J2250; J2543; J2704; J2795; J3010; J3475; J7030; J7042; J7050; J7120; Q9967

== ENCOUNTER 2023-06-20 15:18 | Inpatient (IN) | payer OTHER ==
[~2023-06-20] VITALS: Ht 170.2 cm; Wt 90.3 kg
[~2023-06-20 15:18] MED LIST changes: +CEPHALEXIN125 MG/5 M PO; +CODACE30 PO; +GABA300 PO; +IBU800 M1; +LISI5 PO; +[UNRECOGNIZED DRUG - CODE]
[2023-06-20 16:29] LABS: BASOPHILS ABSOLUTE AUTO 0.02 K/mm3 (0.00-0.23); BASOPHILS PERCENT AUTO 0 % (0-2); EOSINOPHILS ABSOLUTE AUTO 0.02 K/mm3 (0.00-0.68); EOSINOPHILS PERCENT AUTO 0 % (0-6); Hemoglobin 15.5 g/dL (13.5-17.5); IMMATURE GRAN ABSOLUTE AUTO 0.05 K/mm3 (0.00-0.10); IMMATURE GRAN PERCENT AUTO 1 % (0-1); LYMPHOCYTES ABSOLUTE AUTO 0.79 K/mm3 (0.84-5.20); LYMPHOCYTES PERCENT AUTO 7 % (21-46); MONOCYTES ABSOLUTE AUTO 0.77 K/mm3 (0.16-1.47); MONOCYTES PERCENT AUTO 7 % (4-13); Mean Corpuscular Volume 85 fL (80-100); Mean Platelet Volume 10.4 fL (9.1-12.4); NEUTROPHILS ABSOLUTE AUTO 9.37 K/mm3 (1.96-9.15); NEUTROPHILS PERCENT AUTO 85 % (41-73); Platelet Count 241 K/mm3 (150-400); RDW Coefficient Variation 13.2 % (11.7-14.2); Red Blood Cell Count 5.53 M/mm3 (4.30-5.90); White Blood Cell Count 11.02 K/mm3 (4.00-11.30)
[2023-06-20 16:48] LABS: C-REACTIVE PROTEIN, EXT RANGE 6.97 mg/dL (0.000-0.300)
[2023-06-20 16:50] LABS: Albumin, Blood 2.5 g/dL (3.4-5.0); Albumin/Globulin Ratio 0.4 (0.8-1.8); Bilirubin, Total 0.4 mg/dL (0.1-1.0); Bun/Creatinine Ratio 19.6 (12.0-20.0); Calcium, Blood 9.3 mg/dL (8.5-10.1); Creatinine, Blood 1.12 mg/dL (0.60-1.20); Globulin, Blood 6.7 g/dL (2.2-4.0); Potassium, Blood 4.9 mmol/L (3.5-5.5); Total Protein, Blood 9.2 g/dL (6.4-8.2)
[2023-06-20] MEDS ORDERED: ROSUVASTATIN CA20 MG PO (20:18)
[2023-06-20 21:01] VITALS: BP 105/74
[2023-06-21] VITALS (7 sets, daily range): BP systolic 81–154; BP diastolic 60–110
--- NOTE | 2023-06-21 04:46 | NUR ---
SHIFT SUMMARY 57 YR M ADMITTED ON 06/20/23 FOR DIABETIC ULCER OF L FOOT. DNR. NO ACUTE CHANGES THIS SHIFT. PT C/O LEFT FOOT PAIN AND WAS MEDICATED PER EMAR. WOUND ON LEFT LATERAL FOOT AND BETWEEN GREAT AND 4TH TOE OF LEFT FOOT WERE DRESSED W/ GAUZE FOR PROTECTION. PT IS A&O X 4 AND IS PLEASANT AND COOPERATIVE W/ CARE. HE IS USING THE URINAL AT BEDSIDE TO PREVENT WALKING ON HIS FOOT. PLAN IS FOR DR. LEGGETT TO DO DEBRIEDMENT SURGERY SOMETIME THIS WEEK.
[2023-06-21 05:51] LABS: Bun/Creatinine Ratio 12.7 (12.0-20.0); Calcium, Blood 8.8 mg/dL (8.5-10.1); Creatinine, Blood 1.97 mg/dL (0.60-1.20); Potassium, Blood 4.9 mmol/L (3.5-5.5)
--- NOTE | 2023-06-21 19:54 | NUR ---
SHIFT SUMMARY PT A&OX4 AND COOPERATIVE OF CARE. PT'S BP WAS LOW IN THE MORNING AND BP MEDS WERE HELD. DR PINO NOTIFIED AND PT STARTED ON SLOW RATE OF FLUIDS. BP ELEVATED IN AFTERNOON. BP MEDICATIONS GIVEN PER EMAR. DR PINO NOTIFIED. PT C/O PAIN IN LOWER LEFT LEG T/O DAY. MEDICATED PER EMAR. ICE PACK OFFERED BUT PT DECLINED STATING IT DOES NOT HELP. DR BRAVO INTO SEE PT IN AFTERNOON AND PLAN IS FOR LEFT 5TH LITTLE TOE AMPUATION TOMORROW. PT TO BE NPO AT MIDNIGHT. PT HAD VERY LITTLE URINE OUTPUT TODAY. PT WAS ABLE TO VOID 150 IN EVENING. BED IN LOWEST POSITION AND CALL LIGHT IN REACH.
[2023-06-22] VITALS (37 sets, daily range): BP systolic 71–134; BP diastolic 55–110
--- NOTE | 2023-06-22 04:34 | NUR ---
SHIFT SUMMARY 57 YR M ADMITTED ON 06/20/23 FOR LEFT FOOT DIABETIC ULCER AND CELLULITIS. DNR. NO ACUTE CHANGES THIS SHIFT. PT WAS UP TO BEDSIDE COMMODE FOR A BM BUT HE WAS NOT ABLE TO GO. HE BUMPED HIS LEFT FOOT GETTING BACK INTO BED CAUSING HIM A GREAT DEAL OF PAIN. PLAN IS FOR AMPUTATION OF 5TH METATARSAL ON LEFT FOOT THIS A.M. PT HAS BEEN NPO SINCE MIDNIGHT. HE HAS SLEPT FOR MOST OF THE NIGHT THUS FAR AND HAS ONLY REQUESTED PAIN MEDS ONCE EARLY IN THE SHIFT.
[2023-06-22 05:08] LABS: Mean Corpuscular HGB 27.4 pg (26.0-34.0); Mean Corpuscular HGB Conc 31.7 g/dL (31.5-36.5); Mean Corpuscular Volume 86 fL (80-100); Mean Platelet Volume 10.9 fL (9.1-12.4); Platelet Count 218 K/mm3 (150-400); RDW Coefficient Variation 13.2 % (11.7-14.2); RDW Standard Deviation 41.5 fL (35.1-46.3); Red Blood Cell Count 4.75 M/mm3 (4.30-5.90); White Blood Cell Count 10.14 K/mm3 (4.00-11.30)
[2023-06-22 05:34] LABS: Bun/Creatinine Ratio 14.4 (12.0-20.0); Calcium, Blood 8.7 mg/dL (8.5-10.1); Creatinine, Blood 3.27 mg/dL (0.60-1.20); Potassium, Blood 5.3 mmol/L (3.5-5.5)
--- NOTE | 2023-06-22 13:07 | NUR ---
Arrived to Day Surgery by beau. History, Chart, Medications and Allergies reviewed before start of procedure. Patient confirms NPO status and agrees with scheduled surgery. Pre-Op teaching done. Pt verbalizes understanding.
--- NOTE | 2023-06-22 13:20 | NUR ---
CALL TO DR PINO, DISCUSSED THAT THIS RN HELD GLARGENE THIS AM DUE TO A SHARP DECREASE FROM HS. DECREASED THE DAILY AMOUNT AND FIRST DOSE NOW. ALSO NOTIFIED THAT BP WAS LOW AND MEDS HELD. INSTRUCTED TO RECHECK BP AND GIVE IF SPB OVER 110. SBP WAS 98, DID NOT GIVE LISINOPRIL OR COREG BEFORE PT TAKEN TO SG AT 1245. PT BECAME PALE AND NAUSEATED AND VOMITED BEFORE GOING TO [facility], CHECKED BP WHICH ACTUALLY CAME UP WITH SITTING TO 123/81. PT WAS NOT ABLE TO VOID BEFORE SG, RN STATED THAY WOULD TRY IN PRE SG. LAST VOID PT STATES WAS YESTERDAY HS. REPORTED ALL TO PRESG RN
--- NOTE | 2023-06-22 15:10 | NUR ---
1245- PT A/O X4, INDEPENDANT TO SIT AT EDGE OF BED AND ATTEMPED TO VOID GETTING READY TO GO DOWN TO PRE OP- PT WAS UNABLE TO VOID, STAES LAST VOID WAS HS 10/. PT ASKED FOR EMESIS BASIN AND BEGAN VOMITING, STATES HE FEELS NAUSEATED BECAUSE HE HASNT EATEN. LAST BLOOD SUGAR AT 1130 WAS 125. PRE OP RN STATES SHE WILL ADMIN ZOFRAN DOWN STARIS AND ATTEMPT SOME MORE TO VOID. OBTAINED PT'S BLOOD PRESURE WHEN SITTING BECAUSE PT APPEARED A BIT PALE AND PECID. BP IMPROVED WITH SITTING (123/81, HR 102) LAYING DOWN WAS 98/77 PULSE 93. SBA TO PRE OP SIDNEY.
--- NOTE | 2023-06-22 15:15 | NUR ---
1500, CALLED REPORT TO OFFICE SUPPORT CLERK FOR PT TX TO ICU S/P CODE IN SURGERY. WILL SEND BELONGINGS TO ICU 9.
[2023-06-22 15:29] LABS: BASOPHILS ABSOLUTE AUTO 0.02 K/mm3 (0.00-0.23); BASOPHILS PERCENT AUTO 0 % (0-2); EOSINOPHILS ABSOLUTE AUTO 0.08 K/mm3 (0.00-0.68); EOSINOPHILS PERCENT AUTO 1 % (0-6); Hemoglobin 11.9 g/dL (13.5-17.5); IMMATURE GRAN ABSOLUTE AUTO 0.14 K/mm3 (0.00-0.10); IMMATURE GRAN PERCENT AUTO 1 % (0-1); LYMPHOCYTES ABSOLUTE AUTO 1.58 K/mm3 (0.84-5.20); LYMPHOCYTES PERCENT AUTO 13 % (21-46); MONOCYTES ABSOLUTE AUTO 0.91 K/mm3 (0.16-1.47); MONOCYTES PERCENT AUTO 8 % (4-13); Mean Corpuscular HGB 27.4 pg (26.0-34.0); Mean Corpuscular HGB Conc 31.3 g/dL (31.5-36.5); Mean Corpuscular Volume 87 fL (80-100); Mean Platelet Volume 10.6 fL (9.1-12.4); NEUTROPHILS ABSOLUTE AUTO 9.12 K/mm3 (1.96-9.15); NEUTROPHILS PERCENT AUTO 77 % (41-73); Platelet Count 224 K/mm3 (150-400); RDW Coefficient Variation 13.5 % (11.7-14.2); Red Blood Cell Count 4.35 M/mm3 (4.30-5.90); White Blood Cell Count 11.85 K/mm3 (4.00-11.30)
[2023-06-22 15:44] LABS: Bun/Creatinine Ratio 14.7 (12.0-20.0); Calcium, Blood 8.2 mg/dL (8.5-10.1); Creatinine, Blood 3.46 mg/dL (0.60-1.20); Magnesium, Blood 1.8 mg/dL (1.6-2.4); Potassium, Blood 4.9 mmol/L (3.5-5.5)
[2023-06-22 16:09] LABS: International Normalized Ratio 1.15
[2023-06-22 17:40] LABS: Source, Urine Foley catheter
[2023-06-22 17:48] LABS: Appearance, Urine Hazy (Clear); Bilirubin, Urine Neg (Neg); Blood, Urine Neg (Neg); Color, Urine Yellow (P-Yellow); Glucose Qualitative, Urine Neg (Neg); Ketones, Urine Neg (Neg); Leukocyte Esterase, Urine Neg (Neg); Nitrite, Urine Neg (Neg); Protein, Urine 2+ (Neg); Specific Gravity, Urine 1.025 (1.003-1.022); Urobilinogen, Urine NORM (Normal)
[2023-06-22 18:15] LABS: Bacteria Many /hpf; Calcium Oxalate Crystals Rare /hpf; Hyaline Casts 0-2 /lpf (0-2); Red Blood Cells, Urine 0-2 /hpf (0-2); Renal Epithelial Rare /hpf (0-Rare); Squamous Epithelial Cells Few /hpf (Few)
--- NOTE | 2023-06-22 18:22 | NUR ---
SUMMARY PT ARRIVED TO ICU 9 FROM OR AT 1430. ON ARRIVAL PT WAS DISORIENTED, PALE, HYPOTENSIVE AND HAD SHALLOW RESP. IVF WERE RUNNING WO IN 20G IV TO RFA. DR. TOBIN ACCOMPANIED PT, STATES PT CODED 2X IN OR AND RECEIVED EPI. NOTIFIED DR. PINO OF PT'S TRANSFER TO ICU, NEW ORDERS RECEVIED. DR. KENNEDY WAS CONSULTED. BIPAP WAS PLACED FOR A SHORT AMOUNT OF TIME BUT WAS ABLE TO BE REMOVED AFTER PT WAS MORE AWAKE. 1L BOLUS GIVEN AND EPI GTT STARTED. BP HAS RECOVERED, PT IS A/O NOW, SKIN COLOR IS MORE PINK, AND RESP EVEN AND UNLABORED ON RA. PT DOES HAVE PAIN IN CHEST WITH COUGHING AND SUBSIDES WHEN NOT COUGHING FROM CPR IN OR. PT IS NOW EATING DINNER.
--- NOTE | 2023-06-22 19:30 | NUR ---
ASSUMPTION OF CARE PT IS ALERT AND ORIENTED TO SELF, ABLE TO CARRY ON AN APPROPRIATE CONVERSATION AND MAKE NEEDS KNOWN. HE IS FORGETFUL AT TIMES BUT EASILY REORIENTED. HE IS ON ROOM AIR W/ OXYGEN SAT >95% AND NO S/S OR COMPLAINTS OF RESP DISTRESS AT THIS TIME. PT IS HYPOTENSIVE AND ON AN EPINEPHRINE DRIP AT 1MCG/MIN MAINTAINING MAPS GREATER THAN 65 CURRENTLY W/THAT DOSE. PT IS SR IN THE 90S ON THE BAKERY ASSISTANT. PT RECEIVED CPR EARLIER AND HAS SOME RESIDUAL PAIN FROM THE CHEST COMPRESSION BUT NO ACUTE CARDIAC COMPLAINTS NOTED OR REPORTED AT THIS TIME. PT IS S/P AMPUTATION OF LEFT 5TH TOE. PT FOOT IS WRAPPED WITH GAUZE AND RICHARD WRAP. TOES ARE PINK AND PT DENIES ANY LOSS OF SENSATION TO EXPOSED TOES/ABOVE DRESSING. PT HAS A WHARTON CATH INTACT PATENT AND DRAINING YELLOW URINE. A PICC WAS PLACED ON PRIOR SHIFT TO RIGHT UPPER ARM. PT IS AFEBRILE. PT DOES REPORT TOE/FOOT PAIN; SEE EMAR FOR TREATMENT.
--- NOTE | 2023-06-22 23:13 | NUR ---
PT HAS BECOME VERY AGITATED/ANXIOUS, PULLING OFF HIS MONITOR LEADS AND OXYGEN SAT PROBE MULTIPLE TIMES. PT DENIES ANY ETOH USE, DOES HAVE A HISTORY OF BIPOLAR. HOSPITALIST SUSAN NOTIFIED. ORDERS GIVEN
[2023-06-23] VITALS (38 sets, daily range): BP systolic 70–154; BP diastolic 41–120
[2023-06-23] LABS: BASOPHILS ABSOLUTE AUTO 0.03 K/mm3 (0.00-0.23); BASOPHILS PERCENT AUTO 0 % (0-2); EOSINOPHILS ABSOLUTE AUTO 0.03 K/mm3 (0.00-0.68); EOSINOPHILS PERCENT AUTO 0 % (0-6); Hematocrit 43.6 % (37.0-53.0); Hemoglobin 14.3 g/dL (13.5-17.5); IMMATURE GRAN ABSOLUTE AUTO 0.07 K/mm3 (0.00-0.10); IMMATURE GRAN PERCENT AUTO 1 % (0-1); LYMPHOCYTES ABSOLUTE AUTO 1.46 K/mm3 (0.84-5.20); LYMPHOCYTES PERCENT AUTO 12 % (21-46); MONOCYTES ABSOLUTE AUTO 0.82 K/mm3 (0.16-1.47); MONOCYTES PERCENT AUTO 7 % (4-13); Mean Corpuscular HGB Conc 32.8 g/dL (31.5-36.5); Mean Corpuscular Volume 86 fL (80-100); Mean Platelet Volume 10.1 fL (9.1-12.4); NEUTROPHILS ABSOLUTE AUTO 9.85 K/mm3 (1.96-9.15); NEUTROPHILS PERCENT AUTO 80 % (41-73); Platelet Count 244 K/mm3 (150-400); RDW Coefficient Variation 13.5 % (11.7-14.2); RDW Standard Deviation 42.5 fL (35.1-46.3); White Blood Cell Count 12.26 K/mm3 (4.00-11.30)
[2023-06-23 00:16] LABS: Calcium, Blood 8.5 mg/dL (8.5-10.1); Creatinine, Blood 3.31 mg/dL (0.60-1.20); Potassium, Blood 5.6 mmol/L (3.5-5.5)
--- NOTE | 2023-06-23 00:30 | NUR ---
PT HAS HAD INCREASING AGITATION AND CONFUSION. DR JACKSON WAS NOTIFIED. ORDERS GIVEN. LAB RESULTS REPORTED TO HIM WELL UDS RESULTS. VSS AT THIS TIME.
[2023-06-23 00:43] LABS: U Amphetamine Screen DETECTED; U Methamphetamine Screen DETECTED; U Opiates Screen DETECTED
[2023-06-23 00:44] LABS: U Barbituate Screen Not Detected; U Benzodiazapine Screen Not Detected; U Buprenorphine Screen Not Detected; U Cannabinoids Screen Not Detected; U Cocaine Screen Not Detected; U Methadone Screen Not Detected; U Oxycodone Screen Not Detected; U Phencyclidine Screen Not Detected; U Propoxyphene Screen Not Detected
[2023-06-23 05:14] LABS: Albumin, Blood 1.9 g/dL (3.4-5.0); Anion Gap 4 mmol/L (6-16); Blood Urea Nitrogen 55 mg/dL (8-24); Bun/Creatinine Ratio 15.4 (12.0-20.0); CO2, Blood 25 mmol/L (21-32); Calcium, Blood 8.5 mg/dL (8.5-10.1); Chloride, Blood 104 mmol/L (98-108); Creatinine, Blood 3.56 mg/dL (0.60-1.20); Glomerular Filtration Rate 19 (60-); Glucose, Blood 103 mg/dL (70-99); Magnesium, Blood 1.8 mg/dL (1.6-2.4); Potassium, Blood 5.3 mmol/L (3.5-5.5); Sodium, Blood 133 mmol/L (136-145); Vancomycin, Random 25.6 ug/mL
--- NOTE | 2023-06-23 05:31 | NUR ---
SHIFT SUMMERY PT HAS HAD IMPROVEMENT IN AGITATION W/PRN MEDICATIONS. HE IS ST ON THE SUPERVISOR COLOR MAKING. EPINEPHRINE DRIP HAS BEEN OFF SINCE 2210. BP HAS MAINTAINED W/MAP >65 THROUGHOUT THE NIGHT. PT HAS BEEN AFEBRILE. ONLY ORIENTED TO SELF. HE IS ON AIRVO W/SATS 96%. DRESSING ON LEFT FOOT REMAINS C/D/I W/ SENSATION AND TEMP ON EXPOSED TOE AND AREA ABOVE DRESSING WNL.
--- NOTE | 2023-06-23 08:24 | NUR ---
ASSESSMENT PT ASSESSED BY THIS RN AND SHOP MANAGER. I AGREE WITH SHIFT ASSESSMENT DOCUMENTED BY SHOP MANAGER.
--- NOTE | 2023-06-23 17:40 | NUR ---
SHIFT SUMMARY PT INITIALLY MADE IMPROVEMENTS AT THE BEGINNING OF THIS SHIFT. PT MORE AWAKE AND ALERT THIS AFTERNOON, BUT PT BECAME INCREASINGLY CONFUSED WITH VISUAL AND AUDITORY HALLUCINATIONS. PT CONTINUES TO BE IMPULSIVE AND PULLING AT LINES/CORDS. PT MED WITH ATIVAN PRN. PT WITH SBW RESTRAINTS IN PLACE AGAIN THIS EVENING. PT TITRATED OFF HIFLOW NC TO ROOM AIR AT THIS TIME. SPO2 >92%. BP STABLE AT THIS TIME. PT WITH PICC TO HARSHAL IN PLACE WITH ZOSYN INFUSING AT THIS TIME. PT ABLE TO TAKE SOME PO INTAKE WITH ASSISTANCE THIS EVENING. WHARTON TEMP PROBE IN PLACE WITH SMALL AMOUNT OF DARK YELLOW URINE OUTPUT NOTED. PT RESTLESS AND TURNS SELF IN BED SIDE TO SIDE. PT SISTER AT BEDSIDE THIS AFTERNOON. PT WITH HYPOGLYCEMIA EPISODE THIS SHIFT. PT ABLE TO TAKE APPLE JUICE WITH ASSISTANCE. INSULIN HELD THIS SHIFT. WILL CONTINUE TO MONITOR AND REPORT OFF TO ONCOMING RN.
--- NOTE | 2023-06-23 19:16 | NUR ---
ASSUMED CARE OF PT AT 1900. PT PRESENTS IN BED. THRASHES ABOUT BED. ATTEMPTS TO PULL AT LEADS. DOES NOT REDIRECT. PT HAS NO S/S DISTRESS AT THIS TIME. SOFT WRIST RESTRAINTS IN PLACE TO KEEP PT SAFE FROM PULLING AT TUBES AND VITAL LINES. WILL REVIEW CHART AND PLAN OF CARE FOR THIS PT.
--- NOTE | 2023-06-23 22:15 | NUR ---
HAVE MEDICATED PT WITH 50 MCG'S FENTANYL FOR AGITATION AND STATEMENT HE MADE THAT HE IS UNCOMFORTABLE AND WANTS OUT OF BED. THIS DOSE DOES WELL WITH PT. HAVE PLACED OXYGEN ON AT 2 L/M PER NASAL CANNULA. WHEN PT ASLEEP HE TENDS TO DESATURATE TO 87-89 PERCENT. WAS ABLE TO TAKE HIS PO HS MEDS WITH APPLESAUCE AND SOME COACHING. WILL CONTINUE TO MONITOR PT.
[2023-06-24] VITALS (31 sets, daily range): BP systolic 76–155; BP diastolic 58–127
--- NOTE | 2023-06-24 02:46 | NUR ---
SPOT CHECK OF GLUCOSE LEVEL REVEALS 62. TRIED TO GET PT AWAKE ENOUGH TO DRINK SOME ORANGE JUICE. PT WILL NOT AWAKEN ENOUGH FOR SAFE SWALLOW. OPTED TO ADMINISTER 1/2 AMP D50W. PENDING RESULTS
[2023-06-24 04:38] LABS: BASOPHILS ABSOLUTE AUTO 0.02 K/mm3 (0.00-0.23); BASOPHILS PERCENT AUTO 0 % (0-2); EOSINOPHILS ABSOLUTE AUTO 0.06 K/mm3 (0.00-0.68); EOSINOPHILS PERCENT AUTO 1 % (0-6); Hematocrit 36.9 % (37.0-53.0); Hemoglobin 11.9 g/dL (13.5-17.5); IMMATURE GRAN ABSOLUTE AUTO 0.03 K/mm3 (0.00-0.10); IMMATURE GRAN PERCENT AUTO 0 % (0-1); LYMPHOCYTES ABSOLUTE AUTO 1.44 K/mm3 (0.84-5.20); LYMPHOCYTES PERCENT AUTO 17 % (21-46); MONOCYTES ABSOLUTE AUTO 0.57 K/mm3 (0.16-1.47); MONOCYTES PERCENT AUTO 7 % (4-13); Mean Corpuscular HGB 27.6 pg (26.0-34.0); Mean Corpuscular HGB Conc 32.2 g/dL (31.5-36.5); Mean Corpuscular Volume 86 fL (80-100); Mean Platelet Volume 10.2 fL (9.1-12.4); NEUTROPHILS ABSOLUTE AUTO 6.47 K/mm3 (1.96-9.15); NEUTROPHILS PERCENT AUTO 75 % (41-73); Platelet Count 176 K/mm3 (150-400); RDW Coefficient Variation 13.6 % (11.7-14.2); RDW Standard Deviation 42.9 fL (35.1-46.3); Red Blood Cell Count 4.31 M/mm3 (4.30-5.90); White Blood Cell Count 8.59 K/mm3 (4.00-11.30)
[2023-06-24 05:00] LABS: Albumin, Blood 1.7 g/dL (3.4-5.0); Anion Gap 8 mmol/L (6-16); Blood Urea Nitrogen 60 mg/dL (8-24); Bun/Creatinine Ratio 17.8 (12.0-20.0); CO2, Blood 21 mmol/L (21-32); Calcium, Blood 8.4 mg/dL (8.5-10.1); Chloride, Blood 106 mmol/L (98-108); Creatinine, Blood 3.37 mg/dL (0.60-1.20); Glomerular Filtration Rate 20 (60-); Glucose, Blood 82 mg/dL (70-99); Phosphorus, Blood 4.9 mg/dL (2.5-4.9); Potassium, Blood 4.6 mmol/L (3.5-5.5); Sodium, Blood 135 mmol/L (136-145); Vancomycin, Random 15.1 ug/mL
--- NOTE | 2023-06-24 06:43 | NUR ---
PT HAS RESTED FOR MOST OF THE NIGHT. AT TIMES AWAKENS AND PULLS AT RESTRAINTS. PT HAS TRIED TO GET AHOLD OF HIS LINES. MEDICATED ONCE THIS NIGHT WITH FENTNAYL WITH GOOD RESULTS. DRESSING TO LEFT FOOT CDI. HAS BEEN TURNED Q 2 HOURS THROUGOUT THE NIGHT. HAVE PLACED O2 PER NASAL CANNULA FOR DESATRURATIONS TO 85-99 PERCENT WHILE ASLEEP. 1 LITER PER MINUTES ADEQUATE FOR MAINTAINING SATURATIONS >90 PERCENT. WILL CONTINUE TO MONITOR PT, AND WILL REPORT OFF TO ONCOMING RN.
--- NOTE | 2023-06-24 07:00 | NUR ---
ASSUMPTION OF CARE PT AWAKE DURING BEDSIDE REPORT. HE MAKES EYE CONTACT AND ANSWERS IN SHORT PHRASES. PT IN BILAT SOFT WRIST RESTRAINTS. DURING ASSESSMENT, PT IS A&OX3. WRIST RESTRAINTS REMOVED, PT REDIRECTABLE AT THIS TIME. HE DOES HAVE MOMENTS OF CONFUSION WITH BEHAVIOR INCLUDING REACHING FOR ITEMS THAT ARE NOT THERE AND RESTLESS FIGITING. GLUCOSE 54 THIS MORNING, PT GIVEN ORANGE JUICE AND RECHECK GLUCOSE 100. HE REPORTS 10/10 L FOOT/LEG PAIN. REPOSITIONED AND MEDICATED PER EMAR. PT BOOSTED IN BED FOR BREAKFAST. PT SCOOTS SELF DOWN IN BED AND BEGINS COUGHING. ATTEMPTED TO REPOSITION PT BUT PT DECLINES, TRAY REMOVED AT THIS TIME. HE IS ON RA WITH SPO2 >92%. OCCASIONAL COUGH, DENIES SOB. WHARTON PATENT AND DRAINING TO GRAVITY.
--- NOTE | 2023-06-24 10:56 | NUR ---
UPDATE/APPOINTMENT CALLED DR TILLEY'S OFFICE REGARDING WOUND CARE/FOLLOW UP CARE. OFFICE STAFF STATE PT HAS AN APPOINTMENT SCHEDULED 07/04/23 AT 2:10PM. OFFICE STAFF STS DR BRAVO WILL BE IN HOSPITAL THIS AFTERNOON AND WILL PASS ALONG MESSAGE.
--- NOTE | 2023-06-24 12:09 | NUR ---
UPDATE PT IS A&OX2-3. HE HAS MOMENTS OF CONFUSION AND HALLUCINATIONS. HE OCCASIONALLY FIGITS AND PULLS OFF TELEMETRY LEADS AND BP CUFF. PICC LINE PARTIALLY PULLED OUT BY PT, REMOVED AND COBAN IN PLACE. HR AND BP STABLE. CONTINUES TO HAVE L LEG/FOOT DISCOMFORT. BED IN LOW POSITION, CALL LIGHT WITHIN REACH.
--- NOTE | 2023-06-24 14:53 | NUR ---
WOUND CARE DR BRAVO ROUNDED THIS AFTERNOON. PLAN FOR DAILY DRESSING CHANGES WITH ABD PAD AND RICHARD WRAP. NURSE NOTIFY PLACED.
--- NOTE | 2023-06-24 17:18 | NUR ---
SHIFT SUMMARY PT'S MENTATION TRANSITIONS BETWEEN A&OX2-3. HE REPORTS FEELING CONFUSED AT TIMES AND HAS HAD INTERMITTENT HALLUCINATIONS. HE CONTINUES TO HAVE CHEST DISCOMFORT FROM CPR AND LEG PAIN. MEDICATED PER EMAR. HE HAS A NONPRODUCTIVE COUGH. HE HAS BEEN ON ROOM AIR OR 2L NC THROUGHOUT THE DAY. HR 80S-90S ON MONITOR. THIS AFTERNOOON BP TRENDING DOWN WITH SBP 70S-80S AND MAP >65. HOSPITALIST NOTIFIED AND ORDER RECEIVED FOR FLUIDS. HE HAS TOLERATED PO FLUIDS WELL TODAY. HE WAS TOO DROWSY TO EAT LUNCH AND DINNER TRAY IS BEING HELD. WHARTON PATENT AND DRAINING TO GRAVITY. BED IN LOW POSITION, CALL LIGHT WITHIN REACH.
--- NOTE | 2023-06-24 20:23 | NUR ---
ASSUMED CARE OF PT AT 1900. REPORT RECEIVED. PT PRESENTS IN BED. SOME IMPROVING OF COGNITION FROM PREVIOUS DAY'S ASSESSMENT. PT DOES REMAIN SOMEWHAT CONFUSED AND IMPULSIVE. HAVE REPLACED CARDIAC LEADS, AND OXIMETER ONCE. PT MEDICATED WITH 50 MCG'S FENTANYL FOR PAIN THAT INCREASED DURING TURN IN BED. PT OXYGEN SATURATIONS DROP TO 77 PERCENT WHILE ON ROOM AIR. PLACED 2 L/M OXYGEN WHEREAS HIS SATURATIONS IMPROVE. SINCE THIS, PT HAS REMOVED HIS BLOOD PRESSURE CUFF, OXIMETER, AND OXYGEN ONCE AGAIN. WILL REPLACE. PT PENDING TRANSFER TO PCU. WILL REVIEW CHART AND PLAN OF CARE FOR THIS PT.
--- NOTE | 2023-06-24 21:05 | NUR ---
PT TRANSFERRED OUT TO U 11. PT ACKNOWLEDGES TRANSFER AND IS IN AGREEMENT. NEW IV STARTED BY CHARGE NURSE IN RIGHT AC. REPORT GIVEN TO PCU NURSE. TRANSFER AT 2054.
[2023-06-25] VITALS: BP 93/72
[2023-06-25 03:45] VITALS: BP 84/64
[2023-06-25 08:01] VITALS: BP 114/80
--- NOTE | 2023-06-25 09:25 | NUR ---
ASSUMED CARE REPORT FROM PIOTR/LORENA RN AT 0700. PT RESTING IN BED. WAKES c VERBAL STIMULI. FOLLOWS SIMPLE COMMANDS. A&OX 2. INTERMITTANT CONFUSION AND IRRITABILITY. AVASURE IN PLACE FOR LINE PROTECTION AND SAFETY. MAEW. LUNGS DIM IN BASES. ON RA. NSR, RATE 70'S. BP STABLE. TOLERATING MEALS WELL. DRESSING CHANGED TO LEFT FOOT. PHOTOS UPDATED IN CHART. SEE SKIN ASSESSMENT FOR DETAILS. COCCXY RED, BLANCHABLE, MEPILEX PLACED. DR MCGHEE ROUNDED. PT STATUS CHANGED TO SURG s TELE. WILL CONTINUE TO MONITOR.
[2023-06-25 11:22] VITALS: BP 87/64
[2023-06-25 17:33] VITALS: BP 95/68
--- NOTE | 2023-06-25 17:38 | NUR ---
SHIFT SUMMARY NO ACUTE CHANGES THIS SHIFT. STATUS CHANGED TO SURGICAL s TELE. PT REMAINS A&O X 2, INTERMITTANT CONFUSION AND IRRITABILITY, REORIENTS. FOLLOWS SIMPLE COMMANDS. C/O PAIN TO CHEST AND LEFT FOOT. MEDICATED ORDERED. PT SLEEPS MOSTLY, OCCASIONALLY MOANS BUT RETURNS TO SLEEP. BOWEL CARE INITIATED THIS SHIFT. DRESSING TO LEFT FOOT CHANGE, PICS UPDATED IN CHART. PT ALSO WORKED c PHYSICAL THERAPY, STOOL c WALKER. WHARTON REMOVED, PT UNABLE TO URINATE. BLADDER SCAN <200ML AT THIS TIME. CONTINUES TO BE OBSERVED ON CAMERA FOR LINE PROTECTION. WILL CONTINUE TO MONITOR UNTIL REPORT TO ONCOMING NURSE.
[2023-06-25 20:09] VITALS: BP 90/65
[2023-06-26 04:14] LABS: Hematocrit 37.3 % (37.0-53.0); Mean Corpuscular HGB 27.9 pg (26.0-34.0); Mean Corpuscular HGB Conc 32.2 g/dL (31.5-36.5); Mean Corpuscular Volume 87 fL (80-100); Mean Platelet Volume 10.8 fL (9.1-12.4); Platelet Count 182 K/mm3 (150-400); RDW Coefficient Variation 14.2 % (11.7-14.2); RDW Standard Deviation 44.5 fL (35.1-46.3); White Blood Cell Count 8.18 K/mm3 (4.00-11.30)
[2023-06-26 04:43] LABS: Albumin, Blood 1.7 g/dL (3.4-5.0); Anion Gap 8 mmol/L (6-16); Blood Urea Nitrogen 70 mg/dL (8-24); Bun/Creatinine Ratio 16.5 (12.0-20.0); CO2, Blood 21 mmol/L (21-32); Calcium, Blood 8.3 mg/dL (8.5-10.1); Chloride, Blood 105 mmol/L (98-108); Creatinine, Blood 4.25 mg/dL (0.60-1.20); Glomerular Filtration Rate 15 (60-); Glucose, Blood 90 mg/dL (70-99); Phosphorus, Blood 5.4 mg/dL (2.5-4.9); Potassium, Blood 5.9 mmol/L (3.5-5.5); Sodium, Blood 134 mmol/L (136-145)
[2023-06-26 16:40] VITALS: BP 106/72
--- NOTE | 2023-06-26 18:14 | NUR ---
PT HAS REMAINED ON CAMERA MONITORING T/O THE DAY. HIS SISTER WAS UPDATED TODAY. HE IS ALERT, HE IS ORIENTED TO SELF AND PLACE, BUT HE IS HAVING VISUAL HALLUCINATIONS. HE HAS BEEN MEDCIATED T/O THE DAY FOR PAIN, HE HAS BEEN REPOSITIONED EVERY FEW HOURS BUT REMOVES HIS PILLOWS. HIS DRESSING TO LT FOOT WAS CHANGED TODAY, THIS IS TO BE A DAILY DRESSING CHANGE, THE DRESSING IS COMPRISED OF AN ABD PAD AND AN RICHARD WRAP. THE WOUND IS CLOSED WITH STITCHES, NO DRAINAGE NOTED. HIS MENTATION SEEMS TO WAX AND WANE T/O THE DAY. HE HAS NS INFUSING AT 75ML/HR.
[2023-06-26 20:10] VITALS: BP 102/86
[2023-06-27 04:35] VITALS: BP 100/63
[2023-06-27 08:00] VITALS: BP 144/84
[2023-06-27 09:00] LABS: Hematocrit 43.8 % (37.0-53.0); Hemoglobin 13.6 g/dL (13.5-17.5); Mean Corpuscular HGB Conc 31.1 g/dL (31.5-36.5); Mean Corpuscular Volume 87 fL (80-100); Mean Platelet Volume 9.7 fL (9.1-12.4); Platelet Count 229 K/mm3 (150-400); RDW Coefficient Variation 14.2 % (11.7-14.2); RDW Standard Deviation 45.2 fL (35.1-46.3); Red Blood Cell Count 5.03 M/mm3 (4.30-5.90)
[2023-06-27 09:38] LABS: Anion Gap 6 mmol/L (6-16); Blood Urea Nitrogen 68 mg/dL (8-24); Bun/Creatinine Ratio 19.4 (12.0-20.0); CO2, Blood 23 mmol/L (21-32); Calcium, Blood 8.7 mg/dL (8.5-10.1); Chloride, Blood 106 mmol/L (98-108); Creatinine, Blood 3.51 mg/dL (0.60-1.20); Glomerular Filtration Rate 19 (60-); Glucose, Blood 102 mg/dL (70-99); Phosphorus, Blood 4.7 mg/dL (2.5-4.9); Sodium, Blood 135 mmol/L (136-145)
[2023-06-27 12:19] VITALS: BP 103/68
[2023-06-27 15:41] VITALS: BP 133/71
[2023-06-27 16:43] LABS: Albumin, Blood 1.7 g/dL (3.4-5.0); Albumin/Globulin Ratio 0.3 (0.8-1.8); Bilirubin, Direct 0.2 mg/dL (0.0-0.3); Bilirubin, Indirect 0.1 mg/dL (0.1-0.7); Bilirubin, Total 0.3 mg/dL (0.1-1.0); Globulin, Blood 5.2 g/dL (2.2-4.0); Total Protein, Blood 6.9 g/dL (6.4-8.2); Uric Acid, Blood 8.7 mg/dL (3.5-7.2)
[2023-06-27 17:53] VITALS: BP 132/83
--- NOTE | 2023-06-27 18:49 | NUR ---
ASSUMED CARE OF PT AT 0700 THIS AM. NO ACUTE CHANGES T/O THE SHIFT. PT C/O PAIN TO RIBS, L FOOT AND BACK, MEDICATED PER EMAR. NEPHROLOGY CONSULTED AND ORDERS RECEIVED FROM DR WEBSTER. RENAL US COMPLETED THIS EVENING. PT NEEDED STRAIGHT CATH FOR BLADDER SCAN >999, 1000ML OF URINE OUTPUT. CAMERA MONITOR IN PLACE T/O THE SHIFT, BED ALARM ON FOR SAFETY WELL. PT HAS NOT ATTEMPTED TO PULL OR REMOVE LINES THIS SHIFT. OK TO TAKE OFF CAMERA. REPORT CALLED TO RN, PT TRANSFERRED TO RM 311 WITH ALL BELONGINGS.
[2023-06-27 19:30] VITALS: BP 98/66
[2023-06-28 04:29] VITALS: BP 91/64
[2023-06-28 05:10] LABS: Hematocrit 36.3 % (37.0-53.0); Hemoglobin 11.4 g/dL (13.5-17.5)
--- NOTE | 2023-06-28 05:51 | NUR ---
END OF SHIFT SUMMARY PT A&O x3, VSS, AFEBRILE. PT COMPLIANT AND COOPERATIVE WITH CARE PROVIDED. PT C/O SHARP PAIN TO UPPER CHEST FROM RECEIVING CHEST COMPRESSIONS, HE CODED 2 TIMES WHILE IN SURGERY. PAIN MANAGED WITH PRN DILAUDID. PT SLEPT ON AND OFF THROUGHOUT THE NIGHT. PAIN LOCATED TO L FOOT. FLUID RESTRICTION IN PLACE, PT FOLLOWING IT. PT VOIDED VIA THE URINAL. ABOUT 850mL OUTPUT WAS COLLECTED. PT 1P ASSIST WITH TRANSFERS. PT ABLE TO MAKE NEEDS KNOWN. CALL LIGHT WITHIN REACH, WCTM.
[2023-06-28 05:52] LABS: Albumin, Blood 1.9 g/dL (3.4-5.0); Anion Gap 4 mmol/L (6-16); Blood Urea Nitrogen 70 mg/dL (8-24); Bun/Creatinine Ratio 22.5 (12.0-20.0); CO2, Blood 23 mmol/L (21-32); Calcium, Blood 8.4 mg/dL (8.5-10.1); Chloride, Blood 109 mmol/L (98-108); Creatinine, Blood 3.11 mg/dL (0.60-1.20); Glomerular Filtration Rate 23 (60-); Glucose, Blood 131 mg/dL (70-99); Magnesium, Blood 2.1 mg/dL (1.6-2.4); Phosphorus, Blood 4.7 mg/dL (2.5-4.9); Potassium, Blood 5.4 mmol/L (3.5-5.5); Sodium, Blood 136 mmol/L (136-145)
[2023-06-28 07:35] VITALS: BP 105/72
[2023-06-28 15:37] VITALS: BP 117/85
--- NOTE | 2023-06-28 16:42 | NUR ---
SHIFT SUMMARY: PT A&O X4. PT PLEASANT AND COOPERATIVE WITH CARE. 24 HOUR URINE COLLECTION IN PLACE UNTIL 1700. PT ONE PERSON SB W/FWW W/ TRANSFERS. 1L FLUID RESTRICTION IN PLACE. PT MEDICATIED FOR PAIN THIS AM PER EMAR. PT DENIED PAIN MEDICATIONS THIS AFTERNOON. DRESSING CHANGED C/D/I. ABDOMEN REMAINS DISTENDED. CALL LIGHT IN REACH. BED IN LOWEST POSITION. BED ALARM ON.
[2023-06-28 20:19] VITALS: BP 131/80
[2023-06-29 04:52] VITALS: BP 143/87
[2023-06-29 04:56] LABS: Hemoglobin 12.1 g/dL (13.5-17.5)
[2023-06-29 05:27] LABS: Albumin, Blood 2.4 g/dL (3.4-5.0); Anion Gap 4 mmol/L (6-16); Blood Urea Nitrogen 69 mg/dL (8-24); CO2, Blood 27 mmol/L (21-32); Calcium, Blood 9.2 mg/dL (8.5-10.1); Chloride, Blood 108 mmol/L (98-108); Creatinine, Blood 2.87 mg/dL (0.60-1.20); Glomerular Filtration Rate 25 (60-); Glucose, Blood 102 mg/dL (70-99); Magnesium, Blood 1.9 mg/dL (1.6-2.4); Phosphorus, Blood 4.6 mg/dL (2.5-4.9); Potassium, Blood 4.9 mmol/L (3.5-5.5); Sodium, Blood 139 mmol/L (136-145)
[2023-06-29 07:40] VITALS: BP 148/89
[2023-06-29 15:49] VITALS: BP 133/77
--- NOTE | 2023-06-29 18:18 | NUR ---
SHIFT SUMMARY PT AXO, PLEASANT AND COOPERATIVE WITH CARE. COMPLAINING OF SEVERE PAIN, MEDICATED PER EMAR WITH LITTLE EFFECT. VSS. DRESSING CHANGE TO LLE COMPLETED THIS SHIFT. PT TOLERATED WELL. LITTLE DRAINAGE. PT REFUSED DINNER. 2 UNITS INSULIN PER EMAR PT REFUSED R/T NOT EATING DINNER. BED IN LOW POSITION, CALL LIGHT WITHIN REACH.
[2023-06-29 19:32] VITALS: BP 158/88
[2023-06-30 05:30] LABS: Hematocrit 38.5 % (37.0-53.0); Hemoglobin 12.1 g/dL (13.5-17.5)
[2023-06-30 05:55] LABS: Albumin, Blood 2.7 g/dL (3.4-5.0); Anion Gap 4 mmol/L (6-16); Blood Urea Nitrogen 59 mg/dL (8-24); Bun/Creatinine Ratio 26.2 (12.0-20.0); CO2, Blood 29 mmol/L (21-32); Calcium, Blood 9.3 mg/dL (8.5-10.1); Chloride, Blood 106 mmol/L (98-108); Creatinine, Blood 2.25 mg/dL (0.60-1.20); Glomerular Filtration Rate 33 (60-); Glucose, Blood 112 mg/dL (70-99); Magnesium, Blood 1.5 mg/dL (1.6-2.4); Sodium, Blood 139 mmol/L (136-145)
--- NOTE | 2023-06-30 06:24 | NUR ---
NOC SHIFT SUMMARY: DILAUDID GIVEN ONCE LAST NIGHT. TYLENOL GIVEN ONCE LAST NIGHT. LEFT 5TH METATARSAL AMPUTATION. DRESSING INTACT. ANCEF CONTINUES FOR OSTEOMYELITIS.
[2023-06-30 07:33] VITALS: BP 153/84
[2023-06-30 17:17] VITALS: BP 154/86
--- NOTE | 2023-06-30 19:15 | NUR ---
SHIFT SUMMARY PT AXO, PLEASANT AND COOPERATIVE WITH CARE. PT COMPLAINED OF PAIN 10/10 THROUGHOUT THE SHIFT DESPITE BEING MEDICATED PER EMAR. PT ON RA. PT DENIES SOB AND NV. PT HAD SHOWER THIS SHIFT. NO ACUTE CHANGES THIS SHIFT. BED IN LOW POSITION, CALL LIGHT WITHIN REACH. REPORT GIVEN TO UNDERGROUND HEAVY EQUIPMENT OPERATOR NURSE WHO ASSUMES CARE AT THIS TIME. DRESSING CHANGE STILL NEEDS TO BE COMPLETED, SHE IS AWARE.
[2023-06-30 19:50] VITALS: BP 167/87
[2023-07-01 02:35] VITALS: BP 164/81
[2023-07-01 04:57] LABS: Hematocrit 43.5 % (37.0-53.0)
[2023-07-01 05:31] LABS: Albumin, Blood 2.8 g/dL (3.4-5.0); Anion Gap 6 mmol/L (6-16); Blood Urea Nitrogen 52 mg/dL (8-24); Bun/Creatinine Ratio 25.5 (12.0-20.0); CO2, Blood 34 mmol/L (21-32); Calcium, Blood 10.2 mg/dL (8.5-10.1); Chloride, Blood 99 mmol/L (98-108); Creatinine, Blood 2.04 mg/dL (0.60-1.20); Glomerular Filtration Rate 37 (60-); Glucose, Blood 155 mg/dL (70-99); Magnesium, Blood 1.3 mg/dL (1.6-2.4); Phosphorus, Blood 4.2 mg/dL (2.5-4.9); Potassium, Blood 3.6 mmol/L (3.5-5.5); Sodium, Blood 139 mmol/L (136-145)
--- NOTE | 2023-07-01 06:12 | NUR ---
NOC SHIFT SUMMARY: POSSIBLE DISCHARGE HOME TODAY. PT TAKES PO DILAUDID EVERY 4 HOURS NEEDED. LAST GIVEN AROUND 0400. LEFT 5TH METATARSAL AMPUTION. DRESSING TO BE CHANGED DAILY (LAST DONE AT 2100 06/30/23). FLUID RESTRICTION 1000 ML DAILY. CONTINUES ON IV ANCEF. A&OX 4.
[2023-07-01 07:19] VITALS: BP 137/75
--- NOTE | 2023-07-01 14:55 | NUR ---
NOTIFY LOOKING BACK IN THE CHART THERE WAS A CONSULT FOR DR NEWBERRY CALLED AND FAXED 06/21. NO NOTE SEEN FROM DR NEWBERRY. 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 O.R.NOTE FROM DR BRAVO SAID SUTURES TO BE REMOVED IN 10-12 DAYS POST OP. MESSAGE LEFT ON OFFICE VM PT EXPECTED TO STILL BE IN HOSPITAL ON DAY 10. DR SALTER NOTIFIED OF BOTH OF THE ABOVE.
[2023-07-01 17:06] VITALS: BP 150/78
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
[2023-07-01 20:56] VITALS: BP 178/103
[2023-07-01 22:23] VITALS: BP 156/72
[2023-07-02 05:05] VITALS: BP 132/75
[2023-07-02 05:10] LABS: Hemoglobin 14.1 g/dL (13.5-17.5)
[2023-07-02 05:44] LABS: Albumin, Blood 2.8 g/dL (3.4-5.0); Anion Gap 6 mmol/L (6-16); Blood Urea Nitrogen 44 mg/dL (8-24); Bun/Creatinine Ratio 24.4 (12.0-20.0); CO2, Blood 37 mmol/L (21-32); Calcium, Blood 9.9 mg/dL (8.5-10.1); Chloride, Blood 96 mmol/L (98-108); Glomerular Filtration Rate 43 (60-); Glucose, Blood 167 mg/dL (70-99); Magnesium, Blood 1.6 mg/dL (1.6-2.4); Phosphorus, Blood 4.1 mg/dL (2.5-4.9); Potassium, Blood 3.3 mmol/L (3.5-5.5); Sodium, Blood 139 mmol/L (136-145)
[2023-07-02 07:40] VITALS: BP 163/91
--- NOTE | 2023-07-02 15:00 | NUR ---
RN NOTE MR PENA HAS C/O SHARP PAIN TO RIGHT RIB AREA TODAY. HE SAID THAT THIS IS THE SAME TYPE OF PAIN HE HAS BEEN HAVING BUT IT SEEMS SHARPER TODAY. HE HAS BEEN GIVEN 2 DOSES OF DILAUDID, TYLENOL AND A HEATING PAD TO THE AREA TODAY. HE IS LYING IN BED NOW, ROOM DARK, EYES CLOSED, APPEARS TO BE RESTING AFTER LAST DILAUDID DOSE. LEFT FOOT WOUND CLEANSED AND REDRESSED TODAY. SUTURES IN PLACE, BASE OF FOOT DARK IN COLOR, SOME BLOODY DRAINAGE ONTO INNER DRESSING. PHOTO IN CHART 07/01/23. BED LOW, CALL LIGHT IN REACH.
[2023-07-02 15:10] VITALS: BP 162/82
--- NOTE | 2023-07-02 16:12 | NUR ---
SHIFT SUMMARY SEE 1500 RN NOTE REGARDING RIGHT RIB PAIN. MR PENA SAID HE SLEPT FOR A WHILE THIS AFTERNOON AND LOOKS A LITTLE MORE COMFORTABLE. MORE TALKATIVE, READY TO SHOWER AFTER IV ABX.
[2023-07-02 20:02] VITALS: BP 174/94
[2023-07-03 01:40] VITALS: BP 135/70
[2023-07-03 04:55] LABS: Hematocrit 45.2 % (37.0-53.0); Hemoglobin 14.2 g/dL (13.5-17.5)
--- NOTE | 2023-07-03 05:03 | NUR ---
SHIFT SUMMARY 57 YR M ADMITTED ON 06/20/23 FOR DIABETIC FOOT ULCER. DNR. MO ACUTE CHANGES THIS SHIFT. PT WAS SITTING ON EDGE OF BED WATCHING HIS IPAD FOR AWHILE THIS SHIFT. HE STATES HE IS FEELING BETTER BUT HIS RIBS ARE STILL VERY SORE. HE STATES THE HE IS HOPING TO GO HOME TOMRROW. HE IS REFUSING STOOL SOFTNERS STATING THAT HE DOES NOT NEED THEM.
[2023-07-03 05:43] LABS: Albumin, Blood 2.8 g/dL (3.4-5.0); Anion Gap 7 mmol/L (6-16); Blood Urea Nitrogen 34 mg/dL (8-24); Bun/Creatinine Ratio 22.7 (12.0-20.0); CO2, Blood 35 mmol/L (21-32); Calcium, Blood 9.6 mg/dL (8.5-10.1); Chloride, Blood 99 mmol/L (98-108); Glomerular Filtration Rate 54 (60-); Glucose, Blood 149 mg/dL (70-99); Magnesium, Blood 1.4 mg/dL (1.6-2.4); Phosphorus, Blood 3.5 mg/dL (2.5-4.9); Potassium, Blood 3.3 mmol/L (3.5-5.5); Sodium, Blood 141 mmol/L (136-145)
[2023-07-03 07:59] VITALS: BP 152/88
--- NOTE | 2023-07-03 10:50 | NUR ---
RN NOTE LEFT FOOT WOUND LOOKS MORE OPEN TODAY. PHOTOGRAPH TAKEN FOR COMPARISON WITH PHOTOGRAPH FROM 07/01. DISCRETE VM LEFT FOR DR SALTER. PT SAID HE IS HEEL TOUCHING ONLY, NOT PUTTING ANY WEIGHT ON THE FRONT PART OF HIS FOOT. PHOTOGRAPH THIS AM WAS AFTER HE TOOK A SHOWER.
--- NOTE | 2023-07-03 11:19 | NUR ---
RN NOTE DR SALTER LOOKED AT THE FOOT WOUND. VOICE MESSAGE LEFT FOR DR BRAVO REQUESTING THAT HE REASSESSES WOUND TOMORROW PER DR SALTER'S REQUEST. WOUND REDRESSED. TOES WARM. PT HAS DECREASED SENSATION TO LEFT FOOT BUT CAN FEEL STIMULI AND CAN WIGGLE TOES.
--- NOTE | 2023-07-03 14:53 | NUR ---
SHIFT SUMMARY VOICE MESSAGE LEFT ON DR TILLEY'S OFFICE ANSWERING MACHINE (NO ANSWER ON MOBILE) CONSULT REQUEST FAXED TO DR NEWBERRY. BEDSIDE VENOUS ULTRASOUND DONE. DETECTIVE CHIEF SAID SHE EXPECTS CT SCAN TO GET DONE TODAY. LEFT FOOT WOUND DOES NOT LOOK TO BE HEALING. PHOTOGRAPHS PLACED IN CHART. PT HAS BEEN MOSTLY RESTING FOOT, MINIMAL WEIGHT BEARING WITH HEEL TOUCH PER PT. MR PENA HAS HAD LESS C/O RIGHT RIB PAIN TODAY THAN YESTERDAY. NO C/O SOB. BED LOW, CALL LIGHT IN REACH.
[2023-07-03 15:28] VITALS: BP 161/95
[2023-07-03 21:14] VITALS: BP 176/105
[2023-07-04 04:58] LABS: BASOPHILS ABSOLUTE AUTO 0.03 K/mm3 (0.00-0.23); BASOPHILS PERCENT AUTO 0 % (0-2); EOSINOPHILS ABSOLUTE AUTO 0.17 K/mm3 (0.00-0.68); EOSINOPHILS PERCENT AUTO 3 % (0-6); Hematocrit 45.6 % (37.0-53.0); Hemoglobin 14.4 g/dL (13.5-17.5); IMMATURE GRAN ABSOLUTE AUTO 0.02 K/mm3 (0.00-0.10); IMMATURE GRAN PERCENT AUTO 0 % (0-1); LYMPHOCYTES ABSOLUTE AUTO 2.18 K/mm3 (0.84-5.20); LYMPHOCYTES PERCENT AUTO 32 % (21-46); MONOCYTES ABSOLUTE AUTO 0.77 K/mm3 (0.16-1.47); MONOCYTES PERCENT AUTO 11 % (4-13); Mean Corpuscular HGB 27.5 pg (26.0-34.0); Mean Corpuscular HGB Conc 31.6 g/dL (31.5-36.5); Mean Corpuscular Volume 87 fL (80-100); Mean Platelet Volume 9.2 fL (9.1-12.4); NEUTROPHILS ABSOLUTE AUTO 3.72 K/mm3 (1.96-9.15); NEUTROPHILS PERCENT AUTO 54 % (41-73); Platelet Count 377 K/mm3 (150-400); RDW Coefficient Variation 13.2 % (11.7-14.2); RDW Standard Deviation 42.1 fL (35.1-46.3); Red Blood Cell Count 5.23 M/mm3 (4.30-5.90); White Blood Cell Count 6.89 K/mm3 (4.00-11.30)
[2023-07-04 05:19] LABS: Albumin, Blood 2.7 g/dL (3.4-5.0); Anion Gap 6 mmol/L (6-16); Blood Urea Nitrogen 31 mg/dL (8-24); Bun/Creatinine Ratio 20.4 (12.0-20.0); CO2, Blood 33 mmol/L (21-32); Calcium, Blood 9.1 mg/dL (8.5-10.1); Chloride, Blood 100 mmol/L (98-108); Creatinine, Blood 1.52 mg/dL (0.60-1.20); Glomerular Filtration Rate 53 (60-); Glucose, Blood 151 mg/dL (70-99); Magnesium, Blood 1.6 mg/dL (1.6-2.4); Phosphorus, Blood 3.2 mg/dL (2.5-4.9); Potassium, Blood 3.3 mmol/L (3.5-5.5); Sodium, Blood 139 mmol/L (136-145)
[2023-07-04 05:23] VITALS: BP 114/65
--- NOTE | 2023-07-04 05:44 | NUR ---
SHIFT SUMMARY 57 YR M ADMITTED ON 06/20/23 FOR LEFT FOOT DIABETIC ULCER/TOE AMPUTATION. DNR. NO ACUTE CHNAGES THIS SHIFT. PT WENT TO SLEEP AFTER EVENING MEDS AND SLEPT FOR MOST OF THE NIGHT. HE IS PLEASANT AND COOPERATIVE WITH CARE.
[2023-07-04 07:33] VITALS: BP 134/97
[2023-07-04 15:46] VITALS: BP 159/86
--- NOTE | 2023-07-04 19:14 | NUR ---
SHIFT SUMMARY: PT A&O X4. PT PLEASANT AND COOPERATIVE WITH CARE. NO ACUTE CHANGES THIS SHIFT. PT INDEPENDENT IN ROOM. UNABLE TO CHANGE DRESSING THIS SHIFT. THUMB SEWER RN AWARE. DR. PASTOR TO CONSULT PT FOR POTENTIAL VASCULAR SURGERY. CALL LIGHT IN REACH. BED IN LOWEST POSITION.
[2023-07-04 20:28] VITALS: BP 156/97
[2023-07-05 05:05] LABS: Hematocrit 47.4 % (37.0-53.0); Hemoglobin 14.6 g/dL (13.5-17.5)
--- NOTE | 2023-07-05 05:25 | NUR ---
SHIFT SUMMARY PT ALERT AND ORIENTED X 4. HR STABLE. BP STABLE. REPORTS OF CP D/T COMPRESSIONS. OXYGEN SATURATION MAINTAINED ABOVE 92% ON RA. PT MEDICATED FOR PAIN T/O SHIFT, SEE EMAR. L FOOT WOUND CLEANED AND RE-DRESSED. NO ACUTE CHANGES T/O SHIFT. PT IND IN ROOM. WILL CONT TO MONITOR UNTIL REPORT TO DAYSHIFT RN.
[2023-07-05 05:44] LABS: Anion Gap 5 mmol/L (6-16); Blood Urea Nitrogen 29 mg/dL (8-24); CO2, Blood 33 mmol/L (21-32); Calcium, Blood 9.1 mg/dL (8.5-10.1); Chloride, Blood 103 mmol/L (98-108); Creatinine, Blood 1.45 mg/dL (0.60-1.20); Glomerular Filtration Rate 56 (60-); Glucose, Blood 129 mg/dL (70-99); Magnesium, Blood 1.6 mg/dL (1.6-2.4); Phosphorus, Blood 3.3 mg/dL (2.5-4.9); Potassium, Blood 3.7 mmol/L (3.5-5.5); Sodium, Blood 141 mmol/L (136-145)
[2023-07-05 06:20] VITALS: BP 142/96
[2023-07-05 07:30] VITALS: BP 142/97
[2023-07-05 15:01] VITALS: BP 138/73
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
[2023-07-05 19:37] VITALS: BP 134/93
[2023-07-06 05:40] LABS: Hematocrit 45.2 % (37.0-53.0); Hemoglobin 13.9 g/dL (13.5-17.5)
[2023-07-06 06:21] LABS: Albumin, Blood 2.8 g/dL (3.4-5.0); Anion Gap 6 mmol/L (6-16); Blood Urea Nitrogen 31 mg/dL (8-24); Bun/Creatinine Ratio 21.8 (12.0-20.0); CO2, Blood 29 mmol/L (21-32); Calcium, Blood 9.1 mg/dL (8.5-10.1); Chloride, Blood 105 mmol/L (98-108); Creatinine, Blood 1.42 mg/dL (0.60-1.20); Glomerular Filtration Rate 58 (60-); Glucose, Blood 115 mg/dL (70-99); Magnesium, Blood 1.8 mg/dL (1.6-2.4); Phosphorus, Blood 4.2 mg/dL (2.5-4.9); Potassium, Blood 3.4 mmol/L (3.5-5.5); Sodium, Blood 140 mmol/L (136-145)
[2023-07-06 07:44] VITALS: BP 160/98
[2023-07-06 15:37] VITALS: BP 168/101
--- NOTE | 2023-07-06 19:53 | NUR ---
SHIFT SUMMARY: PT A&O X4. PT STATING AROUND 0800 THAT HE WANTED TO LEAVE AMA D/T NOT RECEVING FOOD/FLUID. EXPLAINED TO PT HE NEEDED TO RECEIVE STRESS TEST. PT UPSET BUT EVENTUALLY UNDERSTOOD. PT RECEIVED ONE DAY STRESS TEST. RESULTS IN CHART. AROUND 1600 PT C/O HEAD/NECK PAIN AND FELT NAUSEOUS. ZOFRAN AND PAIN MEDICATIONS GIVEN PER EMAR. NO OTHER COMPLAINTS THIS SHIFT. CALL LIGHT IN REACH. BED IN LOWEST POSITION. REPORT GIVEN TO ONCOMING RN.
[2023-07-06 20:14] VITALS: BP 167/92
[2023-07-07 04:45] VITALS: BP 128/82
[2023-07-07 05:10] LABS: Hematocrit 43.6 % (37.0-53.0); Hemoglobin 13.6 g/dL (13.5-17.5)
--- NOTE | 2023-07-07 05:41 | NUR ---
SHIFT SUMMARY: PT IS ADMITTED FOR OSTEOMYELITIS OF LEFT DIABETIC FOOT ULCER AND IS A DNR. IS ALERT AND ABLE TO MAKE NEEDS KNOWN. ADL S ARE IND. DENIES PAIN OR DISCOMFORT WHEN ASKED. IV TO LEFT FOREARM IS PATENT WITH DRESSING THAT IS CDI. ECO SHOWN AN EF OF 34% AND STRESS TEST DID NOT SHOW ANYTHING SIGNIFICANT.
[2023-07-07 05:48] LABS: Albumin, Blood 2.8 g/dL (3.4-5.0); Anion Gap 5 mmol/L (6-16); Blood Urea Nitrogen 32 mg/dL (8-24); Bun/Creatinine Ratio 24.1 (12.0-20.0); CO2, Blood 29 mmol/L (21-32); Calcium, Blood 8.9 mg/dL (8.5-10.1); Chloride, Blood 107 mmol/L (98-108); Creatinine, Blood 1.33 mg/dL (0.60-1.20); Glomerular Filtration Rate 62 (60-); Glucose, Blood 85 mg/dL (70-99); Phosphorus, Blood 3.9 mg/dL (2.5-4.9); Potassium, Blood 3.7 mmol/L (3.5-5.5); Sodium, Blood 141 mmol/L (136-145)
[2023-07-07 07:46] VITALS: BP 140/84
[2023-07-07] MEDS ORDERED: JARDIANCE25 MG PO (11:57)
[2023-07-07] MEDS ORDERED: HUMALOG KW100 UNIT/1 SC (11:58)
[2023-07-07] MEDS ORDERED: VISBIOME 112.51 EACH PO (11:59)
[2023-07-07] MEDS ORDERED: CEPH500 PO (11:59)
[2023-07-07] MEDS ORDERED: POVIDONE IODINE 5% TOP (12:08)
== END 2023-07-07 12:35 | disposition home health service (06) | DRG 239 ==
LOC: ER 15:18 → ICUE 20:22 → MEDS 20:22 → PCU 20:22 → MEDS 20:59 → ICUE 06-22 14:57 → PCU 06-24 21:07 → MEDS 06-27 18:23 → ENPENDDIS 07-07 11:16 → MEDS 07-07 12:35
PROVIDERS: Family Medicine; Internal Medicine; Internal Medicine Critical Care Medicine; Internal Medicine Nephrology; Student in an Organized Health Care Education/Training Program; ADMIT Hospitalist
PROC: 0T9B70Z Drainage of Bladder with Drainage Device, Via Natural or Artificial Opening (ICD-10-PCS; 2023-06-20)
PROC: 0Y6N0ZF Detachment at Left Foot, Partial 5th Ray, Open Approach (ICD-10-PCS; 2023-06-22)
PROC: 5A12012 Performance of Cardiac Output, Single, Manual (ICD-10-PCS; 2023-06-22)
PROC: 02HV33Z Insertion of Infusion Device into Superior Vena Cava, Percutaneous Approach (ICD-10-PCS; 2023-06-22)
PROC: 5A0935A Assistance with Respiratory Ventilation, Less than 24 Consecutive Hours, High Flow/Velocity Cannula (ICD-10-PCS; principal; 2023-06-23)
DX: E11.52 Type 2 diabetes mellitus with diabetic peripheral angiopathy with gangrene (principal); I46.8 Cardiac arrest due to other underlying condition; I50.23 Acute on chronic systolic (congestive) heart failure; I13.0 Hypertensive heart and chronic kidney disease with heart failure and stage 1 through stage 4 chronic kidney disease, or unspecified chronic kidney disease; L03.116 Cellulitis of left lower limb; M86.172 Other acute osteomyelitis, left ankle and foot; E87.1 Hypo-osmolality and hyponatremia; I42.7 Cardiomyopathy due to drug and external agent; G93.49 Other encephalopathy; N25.81 Secondary hyperparathyroidism of renal origin; N17.9 Acute kidney failure, unspecified; E11.69 Type 2 diabetes mellitus with other specified complication; E11.621 Type 2 diabetes mellitus with foot ulcer; L97.529 Non-pressure chronic ulcer of other part of left foot with unspecified severity; F31.9 Bipolar disorder, unspecified; N18.9 Chronic kidney disease, unspecified; Z66 Do not resuscitate; E11.22 Type 2 diabetes mellitus with diabetic chronic kidney disease; G43.909 Migraine, unspecified, not intractable, without status migrainosus; E78.5 Hyperlipidemia, unspecified; M19.90 Unspecified osteoarthritis, unspecified site; E87.5 Hyperkalemia; D63.1 Anemia in chronic kidney disease; E88.09 Other disorders of plasma-protein metabolism, not elsewhere classified; E11.65 Type 2 diabetes mellitus with hyperglycemia; I45.10 Unspecified right bundle-branch block; E83.39 Other disorders of phosphorus metabolism; I25.10 Atherosclerotic heart disease of native coronary artery without angina pectoris; N25.89 Other disorders resulting from impaired renal tubular function; F12.90 Cannabis use, unspecified, uncomplicated; I08.1 Rheumatic disorders of both mitral and tricuspid valves; E11.40 Type 2 diabetes mellitus with diabetic neuropathy, unspecified; E86.9 Volume depletion, unspecified; T43.655A Adverse effect of methamphetamines, initial encounter; B95.8 Unspecified staphylococcus as the cause of diseases classified elsewhere; J44.9 Chronic obstructive pulmonary disease, unspecified; N18.30 Chronic kidney disease, stage 3 unspecified; Z88.5 Allergy status to narcotic agent; Z87.19 Personal history of other diseases of the digestive system; Z79.82 Long term (current) use of aspirin; Z87.891 Personal history of nicotine dependence; Z86.73 Personal history of transient ischemic attack (TIA), and cerebral infarction without residual deficits; Z86.711 Personal history of pulmonary embolism; Z86.74 Personal history of sudden cardiac arrest; Z79.01 Long term (current) use of anticoagulants; Z79.02 Long term (current) use of antithrombotics/antiplatelets; Z79.891 Long term (current) use of opiate analgesic; Z79.811 Long term (current) use of aromatase inhibitors; Z98.890 Other specified postprocedural states; Z95.1 Presence of aortocoronary bypass graft; Z79.4 Long term (current) use of insulin; Z95.5 Presence of coronary angioplasty implant and graft; Z90.49 Acquired absence of other specified parts of digestive tract
CPT/HCPCS: 36415; 51702; 70450; 71045; 73630; 73700; 76770; 78452; 80048; 80053; 80069; 80076; 80202; 81001; 81050; 82550; 82947; 83036; 83605; 83735; 83880; 84100; 84156; 84550; 85014; 85018; 85025; 85027; 85610; 85651; 85730; 86140; 87071; 87075; 87077; 87186; 87205; 88305; 88311; 93005; 93010; 93017; 93308; 93321; 93926; 94640; 94660; 94664; 94760; 94762; 96365; 96375; 97110; 97116; 97161; 97530; 99284-25; A9270; A9500; C1751; J0171; J0461; J0690; J0706; J1170; J1200; J1644; J1815; J1885; J2001; J2060; J2405; J2543; J2704; J2785; J3010; J3370; J3475; J7030; J7040; J7050; J7060; J7120; P9047

== ENCOUNTER 2023-08-09 13:21 | Inpatient (IN) | payer OTHER ==
[~2023-08-09] VITALS: Ht 170.2 cm; Wt 74.2 kg
[~2023-08-09 13:21] MED LIST changes: +JARDIANCE25 MG PO; +POVIDONE IODINE 5% TOP; +ROSUVASTATIN CA20 MG PO; +VISBIOME 112.51 EACH PO
[2023-08-09 14:22] LABS: BASOPHILS ABSOLUTE AUTO 0.03 K/mm3 (0.00-0.23); BASOPHILS PERCENT AUTO 0 % (0-2); EOSINOPHILS ABSOLUTE AUTO 0.09 K/mm3 (0.00-0.68); EOSINOPHILS PERCENT AUTO 1 % (0-6); Hematocrit 47.3 % (37.0-53.0); Hemoglobin 15.5 g/dL (13.5-17.5); IMMATURE GRAN ABSOLUTE AUTO 0.06 K/mm3 (0.00-0.10); IMMATURE GRAN PERCENT AUTO 1 % (0-1); LYMPHOCYTES PERCENT AUTO 15 % (21-46); MONOCYTES PERCENT AUTO 7 % (4-13); Mean Corpuscular HGB 27.6 pg (26.0-34.0); Mean Corpuscular HGB Conc 32.8 g/dL (31.5-36.5); Mean Corpuscular Volume 84 fL (80-100); Mean Platelet Volume 9.5 fL (9.1-12.4); NEUTROPHILS ABSOLUTE AUTO 6.46 K/mm3 (1.96-9.15); NEUTROPHILS PERCENT AUTO 76 % (41-73); Platelet Count 395 K/mm3 (150-400); RDW Standard Deviation 39.9 fL (35.1-46.3); Red Blood Cell Count 5.61 M/mm3 (4.30-5.90); White Blood Cell Count 8.54 K/mm3 (4.00-11.30)
[2023-08-09 14:44] LABS: Albumin, Blood 2.8 g/dL (3.4-5.0); Albumin/Globulin Ratio 0.4 (0.8-1.8); Bilirubin, Total 0.6 mg/dL (0.1-1.0); Bun/Creatinine Ratio 23.8 (12.0-20.0); Calcium, Blood 10.1 mg/dL (8.5-10.1); Creatinine, Blood 0.97 mg/dL (0.60-1.20); Globulin, Blood 6.5 g/dL (2.2-4.0); Total Protein, Blood 9.3 g/dL (6.4-8.2)
[2023-08-09] MEDS ORDERED: IBU800 M1 PO (16:49)
[2023-08-09] MEDS ORDERED: ENTRESTO 24 MG1 EAC3 PO (16:49)
[2023-08-09 19:53] VITALS: BP 149/100
[2023-08-09] MEDS ORDERED: ALBU2.5V5 INH (20:03)
[2023-08-09] MEDS ORDERED: Aspir 8181 MG PO (20:03)
[2023-08-09] MEDS ORDERED: LANTUS SOL100 UNIT/1 SC (20:05)
[2023-08-09] MEDS ORDERED: JARDIANCE25 MG PO (20:05)
[2023-08-09] MEDS ORDERED: HUMALOG KW100 UNIT/1 SC (20:05)
[2023-08-09] MEDS ORDERED: PROBIOTIC1 EA14 PO (20:06)
[2023-08-09] MEDS ORDERED: BETADINE TOP (20:07)
[2023-08-10 04:34] VITALS: BP 131/84
--- NOTE | 2023-08-10 04:35 | NUR ---
SUMMARY: PT A/OX4 AND CALLS APPROPRIATELY TO SPECIFY NEEDS. HE WAS AWAKE MAJORITY OF NOCTE W/PAIN WELL MANAGED W/SCHEDULED AND PRN MEDS PER EMAR. WOUND VAC DX TO L.HIP TO BE CHANGED TODAY AND HE'S AWAITING PLACEMENT W/INTENDED D/C ON 08/15 OR 08/16. NO ACUTE CHANGES, VSS/AFEBRILE. WCTM AND REPORT TO DAY RN.
--- NOTE | 2023-08-10 05:32 | NUR ---
T/F AND SUMMARY: REPORT RECIEVED FROM AUGUST AND PT T/F VIA [facility]NEY AT ___. HE'S A/OX4, WAS ORIENTED TO ROOM AND CALL SYSTEM AND HAS BED ALARM ON FOR POSS FORTGETFULLNESS, IMPULSIVITY AND FALL RISK. HE'S 1-2PA W/FWW D/T UNSTEADY GAIT AND PAIN R/T L.LATERAL DIABETIC FOOT ULCER. WOUND IS OPEN, MALODOROUS AND APPEARS NECROTIC S/P RECENT 1ST TOE AMPUTATION W/POOR WOUND HEALING. PT SHOWERED THIS SHIFT UTILIZING SHOWER CHAIR W/WOUND CLEANSED THOROUGHLY AND PHOTO DOCUMENTATION COMPLETED. IV ABX WERE RECIEVED AND PRN FENTANYL AND TYLENOL PROVIDED FOR TOLERABLE RELIEF OF PAIN. NS COMMENCED AT 02OO AND PT WAS MADE NPO AT MIDNIGHT PER ORDERS. ORTHO CONSULT CALLED TO ANS SERVICE AND PODIATRY CONSULT WILL NEED CALLED TODAY, WILL ENSURE DAY STAFF ARE AWARE. NO ACUTE CHANGES, VSS AND AFEBRILE. WCTM AND REPORT TO DAY RN.
[2023-08-10 05:40] LABS: BASOPHILS ABSOLUTE AUTO 0.03 K/mm3 (0.00-0.23); BASOPHILS PERCENT AUTO 0 % (0-2); EOSINOPHILS ABSOLUTE AUTO 0.22 K/mm3 (0.00-0.68); EOSINOPHILS PERCENT AUTO 3 % (0-6); Hematocrit 39.6 % (37.0-53.0); IMMATURE GRAN ABSOLUTE AUTO 0.06 K/mm3 (0.00-0.10); IMMATURE GRAN PERCENT AUTO 1 % (0-1); LYMPHOCYTES ABSOLUTE AUTO 1.51 K/mm3 (0.84-5.20); LYMPHOCYTES PERCENT AUTO 17 % (21-46); MONOCYTES ABSOLUTE AUTO 0.81 K/mm3 (0.16-1.47); MONOCYTES PERCENT AUTO 9 % (4-13); Mean Corpuscular HGB 27.8 pg (26.0-34.0); Mean Corpuscular HGB Conc 32.8 g/dL (31.5-36.5); Mean Corpuscular Volume 85 fL (80-100); Mean Platelet Volume 9.6 fL (9.1-12.4); NEUTROPHILS ABSOLUTE AUTO 6.05 K/mm3 (1.96-9.15); NEUTROPHILS PERCENT AUTO 70 % (41-73); Platelet Count 319 K/mm3 (150-400); RDW Coefficient Variation 13.1 % (11.7-14.2); RDW Standard Deviation 40.1 fL (35.1-46.3); Red Blood Cell Count 4.68 M/mm3 (4.30-5.90); White Blood Cell Count 8.68 K/mm3 (4.00-11.30)
[2023-08-10 05:56] LABS: International Normalized Ratio 1.07; Prothrombin Time Results 11.2 Sec (9.7-11.5)
[2023-08-10 06:16] LABS: Magnesium, Blood 1.6 mg/dL (1.6-2.4)
[2023-08-10 06:24] LABS: Albumin, Blood 2.2 g/dL (3.4-5.0); Albumin/Globulin Ratio 0.4 (0.8-1.8); Bilirubin, Total 0.3 mg/dL (0.1-1.0); Calcium, Blood 8.8 mg/dL (8.5-10.1); Creatinine, Blood 1.15 mg/dL (0.60-1.20); Potassium, Blood 3.7 mmol/L (3.5-5.5)
[2023-08-10 06:25] LABS: Total Protein, Blood 7.2 g/dL (6.4-8.2)
[2023-08-10 07:40] VITALS: BP 125/84
[2023-08-10 15:48] VITALS: BP 145/90
--- NOTE | 2023-08-10 17:44 | NUR ---
SHIFT SUMMARY PATIENT ALERT AND INTERACTIVE. PATIENT CONTINUES TO HAVE A LOT OF PAIN AND TENDERNESS OF L FOOT. FOUL ODOR COMING FROM FOOT AND DARK BLOODY DRAINAGE. DR RIOS CONSULTED AND STATES FURTHER CONSULTS TO BE DONE PRIOR TO POSSIBLE SURGERY. PATIENT HAS LENGTHY CARDIAC HISTORY AND COMPLICATIONS AFTER LAST SURGERY. DRY DRESSING APPLIED TO L FOOT WOUND. PATIENT CLEARED TO EAT AT THIS TIME.
[2023-08-10 19:25] VITALS: BP 134/92
[2023-08-10 20:11] LABS: Vancomycin, Trough 32.1 ug/mL (5.0-10.0)
[2023-08-11 03:55] VITALS: BP 108/74
[2023-08-11 06:46] LABS: Vancomycin, Random 21.6 ug/mL
[2023-08-11 07:26] VITALS: BP 119/83
[2023-08-11 15:40] VITALS: BP 107/76
--- NOTE | 2023-08-11 15:57 | NUR ---
SHIFT SUMMARY PT RESTING QUIETLY AT START OF SHIFT, WATCHING TV. PLEASANT AND CO-OP WITH CARE. DR PINO IN EARLY TO SEE PT. CBG'S AND INSULIN COVERAGE CHANGED TO AC/HS WHILE PT EATING. DR JIMENEZ IN TO SEE PT THIS AFTERNOON. [facility] ON DIABETIC L FOOT ULCER. PT IS A&O, ABLE TO MAKE NEEDS KNOWN. MEDICATED FOR C/O PAIN, PER EMAR. DENIES FURTHER NEEDS AT THIS TIME.
[2023-08-11 19:27] VITALS: BP 101/73
--- NOTE | 2023-08-12 00:33 | NUR ---
NIHARIKA AMBROSIO, PT VERY IMPATIENT AT BEGING OF SHIFT PT WANTING BED CAHGED AND SHOWER, EXSPLANED BED ALARMS GOING OFF AND PEOPLE NEEDING TO BE PLACED ON AND PT WOULD NEED TO WAIT FOR JUST A LITTLE BIT. PT VERY ANXIOUS ABOUT SURGERY TOMAROW, AND I THINK GRIEVING ABOUT LOSING FOOT AND PART OF HIS LEG. PT MEDICATED FOR PAIN OXY NOT RELIVEING PAIN ENOUGHT SO GIVEN IV FENTANYL. PT AT THIS TIME SPPEAR TO BE ASLEEP. CALL LIGHT I REACH.
[2023-08-12 03:45] VITALS: BP 100/73
[2023-08-12 07:57] VITALS: BP 137/89
[2023-08-12 08:41] LABS: Hematocrit 39.7 % (37.0-53.0); Hemoglobin 12.7 g/dL (13.5-17.5)
[2023-08-12 09:05] LABS: Magnesium, Blood 1.5 mg/dL (1.6-2.4)
[2023-08-12 09:06] LABS: Bun/Creatinine Ratio 19.3 (12.0-20.0); Calcium, Blood 8.7 mg/dL (8.5-10.1); Creatinine, Blood 1.76 mg/dL (0.60-1.20)
[2023-08-12 11:57] LABS: Vancomycin, Trough 23.2 ug/mL (5.0-10.0)
[2023-08-12 16:50] VITALS: BP 119/91
--- NOTE | 2023-08-12 18:07 | NUR ---
SHIFT SUMMARY: PATIENT A/OX4, ANSWER TO QUESTIONS APPROPRIATELY, USES CALL LIGHT AND ABLE TO MAKE NEEDS KNOWN. PATIENT DENIES CP/PRESSURE, SOB, N/V AND DIZZINESS. PATIENT SURGERY TO L FOOT WAS CANCELLED TODAY. PER DR. JIMENEZ "PATIENT NEEDED TO HAVE MICA PLATE LAYER EVALUATION BEFORE HE CAN DO SURGERY AND CAN RESUME DIET." PATIENT IS CONTINENCE OF BLADDER AND USES URINAL AT BEDSIDE INDEPENDENTLY T/O SHIFT. DRESSING TO L FOOT C/D/I. PATIENT RECEIVED IV ABX AND SCHEDULED MEDS PER EMAR. VITAL SIGNS REVIEWED. CALL LIGHT IN REACH.
[2023-08-12 20:46] VITALS: BP 143/92
--- NOTE | 2023-08-13 02:40 | NUR ---
SHIFT SUMMERY, PT NOW RESTING IN BED APPEARS TO BE ALSEEP. AT START OF SHIFT PT VERY UPSET . STAFF HAD NOT BEEN ABLE TO HELP PT WITH A SHOWER AND PT NOW DEMANDING A SHOWER. PT GOTTEN READY AND SHOWER SET UP. PT HAD SHOWER DRG TO PTS LEFT FOOT CHANGED. PT GIVEN HIS HS MEDS AND A SNACK. PT MEDICATED FOR PAIN. CALL LIGHT IN REACH.
[2023-08-13 06:12] VITALS: BP 108/77
[2023-08-13 08:35] VITALS: BP 118/83
[2023-08-13 14:57] VITALS: BP 118/87
--- NOTE | 2023-08-13 18:42 | NUR ---
SHIFT SUMMARY MR PENA IS A&OX4. C/O SEVERE LEFT FOOT PAIN - GIVEN MEDICATIONS WITH MINIMAL RELIEF. MOSTLY PAIN IS DESCRIBED 10/10, SOMETIMES DOWN TO 8/10 AFTER FENTANYL. LEFT FOOT DRESSING UNCHANGED TODAY IT WAS CHANGED ON PRIOR SHIFT. PT DESCRIBES DECREASED SENSATION TO BOTH FEET, LEFT MORE DECREASED THAN RIGHT. ABLE TO WIGGLE TOES BELOW BANDAGE AND IS ABLE TO FEEL MY TOUCH. OX4. BED LOW, CALL LIGHT IN REACH.
[2023-08-13 21:11] VITALS: BP 122/87
--- NOTE | 2023-08-14 05:04 | NUR ---
NOC SHIFT SUMMARY: VERY PLEASANT. ALERT AND OREINTED X4. CALLS APPROPRIATELY. NO C/O PAIN. LEFT FOOT WRAPPED IN RICHARD BANDAGE. PROBABLE SURGERY ON TUESDAY. CALL LIGHT WITHIN REACH. BED IN LOW POSITION.
[2023-08-14 05:15] VITALS: BP 120/84
[2023-08-14 08:18] VITALS: BP 131/93
[2023-08-14 08:53] LABS: Hematocrit 41.1 % (37.0-53.0); Mean Corpuscular HGB 27.3 pg (26.0-34.0); Mean Corpuscular HGB Conc 31.6 g/dL (31.5-36.5); Mean Corpuscular Volume 86 fL (80-100); Mean Platelet Volume 9.8 fL (9.1-12.4); Platelet Count 288 K/mm3 (150-400); RDW Coefficient Variation 13.3 % (11.7-14.2); RDW Standard Deviation 42.4 fL (35.1-46.3); Red Blood Cell Count 4.77 M/mm3 (4.30-5.90); White Blood Cell Count 7.84 K/mm3 (4.00-11.30)
[2023-08-14 09:27] LABS: Albumin, Blood 2.1 g/dL (3.4-5.0); Anion Gap 7 mmol/L (6-16); Blood Urea Nitrogen 46 mg/dL (8-24); CO2, Blood 20 mmol/L (21-32); Calcium, Blood 8.9 mg/dL (8.5-10.1); Chloride, Blood 109 mmol/L (98-108); Creatinine, Blood 1.77 mg/dL (0.60-1.20); Glomerular Filtration Rate 44 (60-); Glucose, Blood 127 mg/dL (70-99); Magnesium, Blood 1.8 mg/dL (1.6-2.4); Phosphorus, Blood 3.9 mg/dL (2.5-4.9); Potassium, Blood 4.6 mmol/L (3.5-5.5); Sodium, Blood 136 mmol/L (136-145)
[2023-08-14 09:33] LABS: Vancomycin, Trough 25.4 ug/mL (5.0-10.0)
--- NOTE | 2023-08-14 16:37 | NUR ---
DAY SHIFT SUMMARY PT A/OX4. ABLE TO MAKE NEEDS KNOWN. DRESSING TO LLE CDI, BUT MALODOROUS. PT REPORTING 8-06/21 PAIN T/O THE SHIFT. PAIN MED PER NOV. NO ACUTE EVENTS. PT EXRESSING ANXIETY/FEAR REGARDING BKA SURGERY PLANNED FOR TUESDAY. PT PLEASANT AND COOPERATIVE. CONT T/ MONITOR.
[2023-08-14 17:01] VITALS: BP 121/91
--- NOTE | 2023-08-14 17:18 | NUR ---
CBG RESULT 235 @ 1700; RESULT DID NOT XFER/SAVE
[2023-08-14 19:54] VITALS: BP 132/95
--- NOTE | 2023-08-15 04:44 | NUR ---
NOC SHIFT SUMMARY: PT. TOOK A SHOWER LAST NIGHT. DRESSING TO LEFT FOOT CHANGED. PAIN MEDICATIONS GIVEN NEEDED. PT. HAD A PANIC ATTACK LAST NIGHT. NPO SINCE MIDNIGHT FOR POSSIBLE SURGERY TODAY. BED IN LOW POSITION. CALL LIGHT WITHIN REACH.
[2023-08-15 06:01] LABS: Hematocrit 37.2 % (37.0-53.0); Hemoglobin 11.8 g/dL (13.5-17.5); Mean Corpuscular HGB 27.6 pg (26.0-34.0); Mean Corpuscular HGB Conc 31.7 g/dL (31.5-36.5); Mean Corpuscular Volume 87 fL (80-100); Platelet Count 265 K/mm3 (150-400); RDW Coefficient Variation 13.6 % (11.7-14.2); RDW Standard Deviation 43.1 fL (35.1-46.3); Red Blood Cell Count 4.27 M/mm3 (4.30-5.90); White Blood Cell Count 7.17 K/mm3 (4.00-11.30)
[2023-08-15 06:28] LABS: Albumin, Blood 2.1 g/dL (3.4-5.0); Anion Gap 6 mmol/L (6-16); Blood Urea Nitrogen 49 mg/dL (8-24); Bun/Creatinine Ratio 27.5 (12.0-20.0); CO2, Blood 21 mmol/L (21-32); Calcium, Blood 8.7 mg/dL (8.5-10.1); Chloride, Blood 110 mmol/L (98-108); Creatinine, Blood 1.78 mg/dL (0.60-1.20); Glomerular Filtration Rate 44 (60-); Glucose, Blood 212 mg/dL (70-99); Phosphorus, Blood 4.2 mg/dL (2.5-4.9); Potassium, Blood 5.1 mmol/L (3.5-5.5); Sodium, Blood 137 mmol/L (136-145)
[2023-08-15 07:52] VITALS: BP 126/86
[2023-08-15 14:22] VITALS: BP 124/88
--- NOTE | 2023-08-15 16:42 | NUR ---
NOTE PT AWAKE AND ALER. ORTHO, DR PORTER, CONSENTED PT FOR SURGERY TOMORROW. UP AD ELVIRA. LEFT FOOT WRAPPED. NO DRAINAGE NOTED ON DRESSING. MEDICATED FOR LEFT FOOT PAIN. SHE STATED THAT IT WAS BURNING AND THE NARCOTICS DON'T HELP MUCH. EATING AND DRINKING WELL. LIKES COFFEE. CONTINUE POC.
[2023-08-15 21:08] VITALS: BP 152/103
--- NOTE | 2023-08-16 04:43 | NUR ---
NOC SHIFT SUMMARY: PATIENT GOING TO SURGERY TODAY FOR BKA. PATIENT WITH HISTORY OF CARDIAC ARREST X2 DURING LAST SURGERY. FENTANYL GIVEN ONCE FOR PAIN CONTROL. DRESSING TO LEFT FOOT CHANGED 08/15/23. CONSENT SIGNED AND IN CHART. BED IN LOW POSITION. CALL LIGHT WITHIN REACH.
[2023-08-16 05:49] VITALS: BP 136/86
[2023-08-16 07:20] VITALS: BP 131/71
[2023-08-16 10:39] VITALS: BP 148/92
[2023-08-16 12:18] LABS: U Amphetamine Screen Not Detected
[2023-08-16 12:19] LABS: U Barbituate Screen Not Detected; U Benzodiazapine Screen Not Detected; U Buprenorphine Screen Not Detected; U Cannabinoids Screen DETECTED; U Cocaine Screen Not Detected; U Methadone Screen Not Detected; U Methamphetamine Screen Not Detected; U Opiates Screen Not Detected; U Oxycodone Screen DETECTED; U Phencyclidine Screen Not Detected
[2023-08-16 16:13] VITALS: BP 130/78
--- NOTE | 2023-08-16 18:48 | NUR ---
SHIFT SUMMARY PT OUT TO SURGERY TODAY WITH A RETURN WITHOUT SURGERY COMPLETED DUE TO BNP ELEVATED. REPORTED BY DAY SURGERY THE NEW PLAN IS FOR PT TO TRANSFER TO ANOTHER HOSPITAL FOR SURGERY DUE TO CARDIAC CONCERNS. PT WITH PAIN AND STRONG ODOR COMING FROM NECROTIC FOOT. REPORTS PAIN 10/10 EVERY TIME ASKED. REPORTS INDEPENDENT IN ROOM AND STATES HAD A BM ON 08/14/23.
[2023-08-16 20:31] VITALS: BP 135/79
[2023-08-17 04:40] VITALS: BP 116/66
[2023-08-17 06:15] LABS: Bun/Creatinine Ratio 26.9 (12.0-20.0); Calcium, Blood 9.1 mg/dL (8.5-10.1); Creatinine, Blood 1.71 mg/dL (0.60-1.20); Potassium, Blood 4.5 mmol/L (3.5-5.5)
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
[2023-08-17 08:25] VITALS: BP 154/88
[2023-08-17 14:12] LABS: Vancomycin, Random 17.2 ug/mL
[2023-08-17 14:37] VITALS: BP 166/92
--- NOTE | 2023-08-17 18:47 | NUR ---
SUMMARY- PT A/O X4, INDEPENANT IN ROOM, STEADY ON FEET. PARTIAL WB LLE. PT TOLERATING FOOD AND FLUIDS. PAIN CONTROLLED WITH PO OXYCODONE. AND FENT PRN. CALLED DR JACKSON TO INCREASE FREQ OF OXY PT STATES MIN RELEIF WITH OXY Q6. PT'S L FOOD DRESSING CHANGED 1629 WITH IODINE, ABD, KERLEX AND RICHARD. WILL REPORT TO NOC RN
[2023-08-17 20:17] VITALS: BP 152/83
[2023-08-18 05:07] VITALS: BP 125/79
--- NOTE | 2023-08-18 06:00 | NUR ---
SHIFT SUMMARY PT LAYING IN BED DURING REPORT FROM ALEXEY RN, PT REQUESTED SNACK AFTER BLOOD SUGAR CHECK- PT REQUESTED PAIN MEDICATION FOR 06/21 LEFT LEG PAIN X 2 T/O THE SHIFT- PT REPORTS PAIN DOESN'T GET BELOW 8/10 - PT TOOK SCHEDULED MEDS WITHOUT PROBLEMS, BANDAGE C/D & I LEFT FOOT- BED LOW POSITION, CALL LIGHT WITHIN REACH
[2023-08-18 06:18] LABS: Bun/Creatinine Ratio 24.9 (12.0-20.0); Calcium, Blood 8.8 mg/dL (8.5-10.1); Creatinine, Blood 1.97 mg/dL (0.60-1.20); Potassium, Blood 4.4 mmol/L (3.5-5.5)
[2023-08-18 07:32] VITALS: BP 121/73
[2023-08-18 13:24] LABS: Vancomycin, Trough 18.3 ug/mL (5.0-10.0)
[2023-08-18 14:58] VITALS: BP 138/82
--- NOTE | 2023-08-18 19:15 | NUR ---
PT IS A/OX4, PLEASANT AND COOPERATIVE. THE PT IS UP IND IN HIS ROOM. THE PT WAS MEDICATED FOR PAIN T/O THE DAY. THE PT WAS MEDICATED FOR SEVERE PAIN WITH IV FENTNYLE WITH HIS WOUND DRESSING CHANGE. PT APPEARS TO BE BREATHING EASILY WITH OUT OXYGEN. CALL LIGHT IN REACH
[2023-08-18 19:56] VITALS: BP 150/82
--- NOTE | 2023-08-19 05:13 | NUR ---
Shift Summary Pt continues to have painful L foot, BKA delayed d/t anasthesia complications. Pt rcvd PRN pain medications and his foot was elevated on two pillows. After these interventions he was able to sleep well t/o the night. Per report dressing was changed at approx 1500 yesterday, dressing is C/D/I this AM. Pt AOx4, independent in the room.
[2023-08-19 05:59] VITALS: BP 126/77
[2023-08-19 06:59] LABS: Bun/Creatinine Ratio 25.4 (12.0-20.0); Calcium, Blood 8.8 mg/dL (8.5-10.1); Creatinine, Blood 1.93 mg/dL (0.60-1.20); Potassium, Blood 4.6 mmol/L (3.5-5.5)
[2023-08-19 07:21] VITALS: BP 160/92
[2023-08-19 07:22] VITALS: BP 161/93
[2023-08-19 15:04] VITALS: BP 166/95
--- NOTE | 2023-08-19 17:25 | NUR ---
DRESSING CHANGE COMPLETED- PLACED AN ORDER FOR INPT WOUND CARE CONSULT. THE PT HAS A SURGICAL CONSULT BUT PER REPORT PT CODDED LAST TIME HE HAD ANESTHESIA, ANASTHESIOLOGIST IS NOT COMFORTABLE TAKING THIS PT CASE.
[2023-08-19 17:44] VITALS: BP 140/74
[2023-08-19 19:22] VITALS: BP 151/80
--- NOTE | 2023-08-19 19:36 | NUR ---
SHIFT SUMMARY- PT HAS HAD NO ACUTE CHANGE T/O THE DAY. PT GOT HIMSELF IN THE SHOWER WITHOUT WRAPPING HIS IV. DRESSING WAS CHANGED AFTER THE SHOWER. INPT WOUND CARE CONSULT WAS PLACED PER NURSING PROTOCOL. THE PT IS AWAITING SURGERY UNCERTAIN WHEN THAT MAY BE AT THIS TIME. BEDSIDE REPORT COMPLETED WITH NIGHT RN. NO S&S OF DISTRESS AT THIS TIME.
[2023-08-20 04:47] VITALS: BP 138/83
[2023-08-20 06:17] LABS: Hematocrit 35.6 % (37.0-53.0); Hemoglobin 11.4 g/dL (13.5-17.5); Mean Corpuscular HGB 27.9 pg (26.0-34.0); Mean Corpuscular Volume 87 fL (80-100); Mean Platelet Volume 9.7 fL (9.1-12.4); Platelet Count 243 K/mm3 (150-400); RDW Coefficient Variation 13.3 % (11.7-14.2); RDW Standard Deviation 41.5 fL (35.1-46.3); Red Blood Cell Count 4.09 M/mm3 (4.30-5.90); White Blood Cell Count 5.98 K/mm3 (4.00-11.30)
--- NOTE | 2023-08-20 06:28 | NUR ---
Shift Summary Pt continues to have painful L foot and had a headache last night. This morning his dressing is C/D/I, it was changed yesterday per dayshift report. Pt had a few episodes of waking up in a state of panic, he was easily reoriented. Pt states waking up like that hasn't happened to him before. He is up to the BR independently and slept well for most of the night.
[2023-08-20 06:45] LABS: Bun/Creatinine Ratio 28.2 (12.0-20.0); Calcium, Blood 8.6 mg/dL (8.5-10.1); Creatinine, Blood 1.81 mg/dL (0.60-1.20); Potassium, Blood 4.4 mmol/L (3.5-5.5)
[2023-08-20 07:35] VITALS: BP 144/80
[2023-08-20 16:25] VITALS: BP 170/95
--- NOTE | 2023-08-20 18:12 | NUR ---
SHIFT SUMMARY PATIENT AMBULATING TO BATHROOM INDEPENDENTLY. TOLERATING IV ABX, STATED ONE EPISODE OF EMESIS, GIVEN ZOFRAN FOR NAUSEA. WOUND CARE COMPLETED PER ORDER. OXYCODONE FOR PAIN CONTROL. WILL CONTINUE TO MONITOR
[2023-08-20 21:06] VITALS: BP 168/95
[2023-08-21 06:02] VITALS: BP 146/76
--- NOTE | 2023-08-21 06:21 | NUR ---
SHIFT SUMMARY ASSUMED CARE, BEDSIDE REPORT DONE- PT ON CONTACT PRECAUTIONS, PT LAYING IN BED DURING BEDSIDE ROUNDS, PT REPORTS PAIN INCREASED, INFORMED PT THAT IT'S TOO SOON FOR PAIN MEDICATION- PT STATED UNDERSTANDING AND PAIN IS ALWAYS 10/10 PT REPORTS 10/10 PAIN EVEN IF ASLEEP AND AWAKENED, PT APPEARS TO BE COMFORTABLE -PT CALLED AND REPORTED THAT HE WAS FEELING ANXIOUS, PT REPORTS HE HAS PANIC ATTACKS AND ANXIETY, OFFERED TO OPEN DOOR AND ENOURAGED PT TO TRY TO CLOSE EYES AND BREATH- PT WAS ABLE TO FALL ASLEEP AFTER THE ABX TX - BED LOW POSITION, CALL LIGHT WITHIN REACH, PT INDEPENDENT IN ROOM
[2023-08-21 07:33] VITALS: BP 141/77
--- NOTE | 2023-08-21 15:48 | NUR ---
SHIFT SUMMARY WOUND CARE DONE THIS SHIFT, WOUND APPEARS SPONGY AND 100%ESCHAR WITH FOUL ODOR. DR DISCUSSING POSSIBLE DISCHARGE UNTIL SURGERY CAN BE SECURED. USING OXY FOR PAIN THIS SHIFT, RATES HIGH PAIN REGARDLESS OF INTERVENTIONS. WILL CONTINUE TO MONITOR
[2023-08-21 17:04] VITALS: BP 182/111
--- NOTE | 2023-08-21 17:48 | NUR ---
PHYSICIAN CONTACT CALLED DOC TO REPORT ELEVATED BP. WAS TREATED FOR PAIN/DISCOMFORT, BASIC NEEDS MET, BP RETAKEN AND WAS STILL ELEVATED. ORDERED TO CONTINUE TO MONITOR. WILL CONTINUE TO MONITOR
[2023-08-21 19:08] VITALS: BP 180/109
[2023-08-21 21:04] VITALS: BP 174/95
[2023-08-22 05:21] VITALS: BP 152/90
--- NOTE | 2023-08-22 06:30 | NUR ---
SHIFT SUMMARY PT LAYING IN BED DURING BEDSIDE REPORT FROM JEANNE- REPEAT VITALS AT SHIFT CHANGED, PT CONTINUES TO BE HYPERTENSIVE, PT SCHEDULED SEROQUEL 300MG AT BEDTIME- WILL RECHECK AFTER MEDICATION GIVEN- PT BP LOWER - PT CBG 210- PT REQUESTED PAIN MEDICATION AND SNACK - GAVE INSULIN PER ORDER, NO FAST ACTING INSULIN PER PARAMETERS- PT SLEPT T/O NIGHT, BED LOW POSITION, CALL LIGHT WITHIN REACH- PT INDEPENDENT IN ROOM
[2023-08-22 07:18] VITALS: BP 156/93
--- NOTE | 2023-08-22 08:54 | NUR ---
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 PER REPORT, HE HAS REPORTED THIS IN PREVIOUS DAYS. THIS WAS NOT OBSERVED PT STATED HE GOT UP TO BR AND HAD FLUSHED IT. OF NOTE, HE HAD JUST BEEN GIVEN HIS MEDICATIONS INCLUDING OXYCODONE. THIS AUTHOR IS NOT COMFORTABLE GIVING OXYCODONE AGAIN SINCE EMESIS WAS NOT WITNESSED. WILL REPORT TO PROVIDER DURING ROUNDS.
[2023-08-22 12:28] LABS: Bun/Creatinine Ratio 23.6 (12.0-20.0); Calcium, Blood 8.9 mg/dL (8.5-10.1); Creatinine, Blood 1.48 mg/dL (0.60-1.20); Magnesium, Blood 1.6 mg/dL (1.6-2.4); Potassium, Blood 4.3 mmol/L (3.5-5.5)
[2023-08-22 12:32] LABS: BASOPHILS ABSOLUTE AUTO 0.02 K/mm3 (0.00-0.23); BASOPHILS PERCENT AUTO 0 % (0-2); EOSINOPHILS ABSOLUTE AUTO 0.08 K/mm3 (0.00-0.68); EOSINOPHILS PERCENT AUTO 1 % (0-6); Hematocrit 40.2 % (37.0-53.0); Hemoglobin 12.8 g/dL (13.5-17.5); IMMATURE GRAN ABSOLUTE AUTO 0.03 K/mm3 (0.00-0.10); IMMATURE GRAN PERCENT AUTO 0 % (0-1); LYMPHOCYTES ABSOLUTE AUTO 1.32 K/mm3 (0.84-5.20); LYMPHOCYTES PERCENT AUTO 18 % (21-46); MONOCYTES PERCENT AUTO 7 % (4-13); Mean Corpuscular HGB 27.4 pg (26.0-34.0); Mean Corpuscular HGB Conc 31.8 g/dL (31.5-36.5); Mean Corpuscular Volume 86 fL (80-100); Mean Platelet Volume 9.9 fL (9.1-12.4); NEUTROPHILS ABSOLUTE AUTO 5.25 K/mm3 (1.96-9.15); NEUTROPHILS PERCENT AUTO 73 % (41-73); Platelet Count 230 K/mm3 (150-400); RDW Coefficient Variation 13.2 % (11.7-14.2); RDW Standard Deviation 40.9 fL (35.1-46.3); Red Blood Cell Count 4.68 M/mm3 (4.30-5.90)
[2023-08-22 16:20] VITALS: BP 169/91
--- NOTE | 2023-08-22 18:39 | NUR ---
SHIFT SUMMARY: NO ACUTE EVENTS. C/O 9/10 PAIN IN L FOOT; MEDICATED PER EMAR WITH INADEQUATE RELIEF. PT REPORTS VOMITING AFTER BREAKFAST THIS MORNING; STATED IT WAS SUDDEN, BUT HE WAS ABLE TO GET TO THE BATHROOM IN TIME. NO STAFF HAS OBSERVED THESE EPISODES OF EMESIS OR THE EMESIS ITSELF DESPITE PT BEING EDUCATED THAT WE NEED TO SEE IT TO CHART IT. UNKNOWN IF A.M. MEDICATIONS STAYED DOWN. IS INDEPENDENT IN ROOM. TOOK SHOWER WITH ASSISTNCE THIS EVENING. PLAN IS FOR OR TOMORROW MORNING.
[2023-08-22 21:48] VITALS: BP 190/114
[2023-08-23 01:45] LABS: SARS-Cov-2 (COVID-19) PCR, MMC NEGATIVE (NEGATIVE)
[2023-08-23 05:37] VITALS: BP 152/86
--- NOTE | 2023-08-23 05:51 | NUR ---
SHIFT SUMMARY PT LAYING IN BED DURING BEDSIDE ROUNDS, PT ON CONTACT PRECAUTIONS D/T HISTORY OF MRSA, PT REPORTED TO KATHERYN NUNO THAT HE WAS HAVING A PANIC ATTACK AND REQUESTED PAIN MEDICATION, EXPLAINED TO PT THAT NOTHING IS ORDERED FOR ANXIETY OR PANIC ATTACKS AND TOO SOON FOR PAIN MEDS, PT REQUESTED SEROQUEL EARLY, GAVE SEROQUEL BEFORE - SURGICAL PRE CHECK LIST REVIEWED= 18G IV STARTED IN RIGHT WRIST AND COVID TEST DONE- PT TEARFUL THIS AM AND CONCERNED OF PROCEDURE- 0540 CBG DONE AND CHG BATH DONE AND BEDDING CHANGED, BED LOW POSITION, CALL LIGHT WITHIN REACH
[2023-08-23 12:00] VITALS: BP 145/76
--- NOTE | 2023-08-23 14:31 | NUR ---
NOTIFIED BY DAY SURGERY RN THAT PT'S SURGERY HAS BEEN POSTPONED UNTIL TOMORROW. PATIENT MADE AWARE. NPO STATUS CHANGED, DIET ORDERED FOR DINNER. SANDWICH, SOUP, AND SF PUDDING GIVEN IN THE MEANTIME. PATIENT IS UNDERSTANDABLY FRUSTRATED WITH THIS DEVELOPMENT.
[2023-08-23 15:51] VITALS: BP 154/96
--- NOTE | 2023-08-23 18:22 | NUR ---
SHIFT SUMMARY: PATIENT TRANSFERRED TO ROOM 333 AT 1744. NO ACUTE EVENTS. SURGERY POSTPONED UNTIL TOMORROW. L FOOT DRESSING CHANGED, TOLERATED WELL BY PT. PT STATED THAT OXYCODONE 10 MG IS INADEQUATE IN MANAGING HIS PAIN. ON ROOM AIR, NO COUGH. NO REPORTS OF VOMITING TODAY. IS ANXIOUS TO HAVE SURGERY "TO GET IT DONE."
[2023-08-23 19:28] VITALS: BP 166/107
--- NOTE | 2023-08-24 00:33 | NUR ---
08/23/232143 PT SITTING UP IN BED, REPORTS PAIN TO L FOOT. WOUND TO L FOOT, DRESSING IS C/D/I AND RECENTLY CHANGED. WILL GIVE PAIN MEDS AND EVAL FOR EFFECT. PT DECLINES SCD'S AT THIS TIME. BS IS 169. PT REQUESTING COFFEE, WILL BRING IT TO HIM. NO OTHER APPARENT SIGNS OF DISTRESS. CALL LIGHT IS IN REACH.
--- NOTE | 2023-08-24 00:35 | NUR ---
0000 PT LYING IN BED, EYES CLOSED, APPEARS TO BE RESTING. BREATHING IS EVEN, UNLABORED. NO APPARENT SIGNS OF DISTRESS. CALL LIGHT IS IN REACH.
--- NOTE | 2023-08-24 04:13 | NUR ---
0205 PT REQUESTED AND RECIEVED PAIN MEDS, WILL EVAL FOR EFFECT. PT DENIES NEED FOR ANYTHING ELSE AT THIS TIME. NO OTHER APPARENT SIGNS OF DISTRESS. CALL LIGHT IS IN REACH.
--- NOTE | 2023-08-24 04:14 | NUR ---
PT LYING IN BED, EYES CLOSED, APPEARS TO BE RESTING. BREATHING IS EVEN, UNLABORED. NO APPARENT SIGNS OF DISTRESS. CALL LIGHT IS IN REACH.
[2023-08-24 04:28] VITALS: BP 151/86
--- NOTE | 2023-08-24 05:09 | NUR ---
PT IS AAO X 4, ON RA. REPORTS PAIN IN L FOOT, GOT PAIN MEDS X 2. BS WAS 169. WOUND TO L FOOT, DRESSING IS C/D/I.
--- NOTE | 2023-08-24 06:03 | NUR ---
PT LYING IN BED, EYES CLOSED, APPEARS TO BE RESTING. BREATHING IS EVEN, UNLABORED. NO APPARENT SIGNS OF DISTRESS. CALL LIGHT IS IN REACH. NO OTHER CHANGES THIS SHIFT.
[2023-08-24 07:19] VITALS: BP 172/101
[2023-08-24 09:23] VITALS: BP 163/100
[2023-08-24 12:18] VITALS: BP 145/93
[2023-08-24 15:34] VITALS: BP 150/103
[2023-08-24 19:23] VITALS: BP 153/107
--- NOTE | 2023-08-24 20:20 | NUR ---
PATIENT BLOOD PRESSURE ELEVATED THROUGHOUT THE DAY, ONE TIME DOSE FOR CLONIDINE OBTAINED, BRINING PRESSURE DOWN SOME BUT STILL HIGH, DR HOGAN NOTIFIED, NO NEW ORDERS DUE TO PATIENT SCHEDULED FOR SURGERY AT 1230, WHICH WAS THEN RESCHEDULED TO 430PM AND THEN FURTHER MOVED OUT BY DR JIMENEZ AT BEDSIDE AROUND 1645. PATIENT MEDICATED FOR PAIN THROUGHOUT THE DAY PER EMAR WITH LITTLE RELIEF, DR HOGAN ALSO MADE AWARE. NO NEW ORDERS AT THIS TIME. PLAN IS FOR PATIEN TO HAVE SURGERY TOMORROW AND NPO AT MIDNIGHT.
--- NOTE | 2023-08-25 04:45 | NUR ---
1900: ASSUMED CARE OF PT. REPORT RECEIVED FROM DAY SHIFT RN. PT IS SITTING UP IN THE CHAIR, A/O, WITH NO S/S OF DISTRESS AT THIS TIME, BREATHING IS EVEN AND UNLABORED. WOUND TO RLE IS OUDOUROUS AND REPORTED PAINFUL FROM THE PT. PLAN TO CHANGE DRESSING. WHEN THIS RN CAME TO CHANGE THE DRESSING THE PT DECLINED AND STATED THAT IT COULD BE DONE LATER, HE WAS GOING TO SLEEP. PLAN TO ATTEMPT IN THE am. VSS REMAINED STABLE, MEDICATIONS PROVIDED ORDERED. SAFETY MEASURES TAKEN.
[2023-08-25 04:54] VITALS: BP 124/74
[2023-08-25 07:35] VITALS: BP 141/86
--- NOTE | 2023-08-25 09:00 | NUR ---
pt laying in bed on his side, wakes easily, a/ox4, pleasant and cooperative with care, follows commands well, requesting pain meds this am, this was given, swallows po meds without diff, lungs are clear t/o, resp even and unlabored, no cough noted, on r/a, hrr, no edema noted, piv to lfa and rfa, sites are clear and patent, btx4, abd flat soft nontender, voids via urinal and bathroom, ambulates indep, eneida, wound to left foot, waiting on surgery, will happen tuesday, call light in reach.
[2023-08-25 18:19] VITALS: BP 159/89
--- NOTE | 2023-08-25 18:30 | NUR ---
pt sitting up in a chair for dinner, up ad jefry in room, dressing to foot was changed this evening. no acute changes this shift. call light in reach.
[2023-08-25 20:30] VITALS: BP 177/113
[2023-08-25 20:38] VITALS: BP 183/101
[2023-08-25 21:59] VITALS: BP 168/84
--- NOTE | 2023-08-26 04:04 | NUR ---
1900: ASSUMED CARE OF PT. REPORT RECEIVED FROM DAY SHIFT RN. PT IS SITTING UP AT THE SIDE OF BED. A/O, BREATHING IS EVEN AND UNLABORED. NO ACUTE DISTRESS. PT COMPLAINS THAT HE IS NOT ABLE TO GO HOME TO AWAIT HIS SURGERY, RATHER HE NEEDS TO REMAIN INPT TO RECEIVE IV ABX DURING THAT DURATION. DRESSING TO RLE IS C/D/I, REPORTED CHANGED IN THE AFTERNOON OF 08/25/23. VS WITH HYPERTENSTION. REPORTED TO HOSPITALIST AND PRN ORDERS RECEIVED. PROVIDED X1 WITH THE INTENDED EFFECT. PT TOLERATED WELL WITHOUT ADVERSE EFFECTS. SLEPT MOST OF THE NIGHT WITHOUT COMPLAINTS. MEDICATIONS PROVIDED ORDERED. NEEDS WERE ADDRESSED AND SAFETY PRECAUTIONS TAKEN.
[2023-08-26 05:19] VITALS: BP 163/91
[2023-08-26 06:46] LABS: Hematocrit 38.9 % (37.0-53.0); Hemoglobin 12.3 g/dL (13.5-17.5)
[2023-08-26 07:20] LABS: Albumin, Blood 2.3 g/dL (3.4-5.0); Anion Gap 5 mmol/L (6-16); Blood Urea Nitrogen 36 mg/dL (8-24); Bun/Creatinine Ratio 25.2 (12.0-20.0); CO2, Blood 28 mmol/L (21-32); Calcium, Blood 8.5 mg/dL (8.5-10.1); Chloride, Blood 108 mmol/L (98-108); Creatinine, Blood 1.43 mg/dL (0.60-1.20); Glomerular Filtration Rate 57 (60-); Glucose, Blood 127 mg/dL (70-99); Magnesium, Blood 1.6 mg/dL (1.6-2.4); Phosphorus, Blood 3.5 mg/dL (2.5-4.9); Potassium, Blood 3.9 mmol/L (3.5-5.5); Sodium, Blood 141 mmol/L (136-145)
[2023-08-26 08:33] VITALS: BP 180/104
[2023-08-26 08:35] VITALS: BP 177/98
[2023-08-26 14:52] VITALS: BP 168/101
--- NOTE | 2023-08-26 16:17 | NUR ---
SHIFT SUMMARY PT AWAKE DURING SHIFT REPORT. PLEASANT AND CO-OP WITH CARE. UP INDEPENDENTLY IN AND TO BTHRM. DENIED NEEDS AT THAT TIME. PT LATER C/O PAIN TO L FOOT. MEDICATED PER EMAR. DR JIMENEZ IN TO SEE PT TODAY. PT TO BE NPO AT [facility] ON TUESDAY NIGHT FOR SX ON TUESDAY. PT AWARE. DENIES FURTHER NEEDS AT THIS TIME. CALL LT IN REACH.
[2023-08-26 20:00] VITALS: BP 151/96
--- NOTE | 2023-08-27 03:45 | NUR ---
END OF SHIFT SUMMARY PT A&O x4, VSS, AFEBRILE. WOUND CARE COMPLETED PER eMAR ORDER. PT PLEASANT AND COOPERATIVE WITH CARE PROVIDED. PT ELEVATING L FOOT ON PILLOW. PT SLEPT WELL OVERNIGHT. PT C/O PAIN TO L FOOT/ANKLE. PAIN MANAGED EFFECTIVELY WITH PRN OXYCODONE AND APAP. CALL LIGHT WITHIN REACH, WCTM.
[2023-08-27 04:41] VITALS: BP 148/92
[2023-08-27 07:18] VITALS: BP 173/105
[2023-08-27 15:08] VITALS: BP 158/94
--- NOTE | 2023-08-27 18:05 | NUR ---
SHIFT SUMMARY; PATIENT HAD ELEVATED BLOOD PRESSURE THIS AM. HE RECEIVED HIS AM HTN MEDS SHORTLY AFTER BP WAS TAKEN AND REPEAT BLOOD PRESSUSRE SHOWED MUCH IMPROVEMENT. PATIENT HAS SISTER BRING HIM A PIZZA FOR LUNCH AND PATIENT IS NOTED TO EAT THE WHOLE LARGE PIZZA. SHORTLY AFTERWARDS VOMITTS IN THE BATHROOM. SHARON IS CAUTIONED ABOUT HIS EATING SO MANY CARBS AND THAT THIS IS NOT GOOD FOR HIS HEALING PROCESS. HE INSISTS ON EATING FOOD FAMILY BRINGS IN. WILL CONTINUE TO EDUCATE NEEDED.
[2023-08-27 19:13] VITALS: BP 162/95
[2023-08-28 03:56] VITALS: BP 155/81
--- NOTE | 2023-08-28 04:48 | NUR ---
SHIFT SUMMARY *BROOK* WAS ALERT AND FULLY ORIENTED ON ASSESSMENT. HE IS INDEPENDENT IN THE ROOM. PT HAS POOR DIABETIC DIETARY COMPLIANCE, HE ATE A WHOLE PIZZA TODAY ON DAY SHIFT. PT EDUCATION PROVIDED. NO ACUTE EVENTS TONIGHT, NO NOTED CHANGES IN CONDITION. PT RESTING IN BED AT A LOW POSITION WITH CALL LIGHT IN REACH, L FOOT DRESSING APPEARS C/D/I, WILL REASSESS AND REDRESS FOOT BEFORE SHIFT CHANGE.
[2023-08-28 07:20] VITALS: BP 171/107
[2023-08-28 15:10] VITALS: BP 130/79
--- NOTE | 2023-08-28 17:01 | NUR ---
SHIFT SUMMARY; NO ACUTE CHANGES IN CONDITON NOTED DURING DAY. MEDICATED WITH ROXYCODONE FOR PAIN 10/10 ON LEFT LOWER LEG. HE REFUSES SHOWER WILL ASK METAL BONDING PRESS OPERATOR TO BROACH SUBJECT AGAIN TONIGHT. PATIENT IS HYPERTENSIVE IN THE AM HOWEVER AM MEDS BRING BP DOWN TO NORMAL RANGE DURING DAY. DECISION TO HOLD HEPARIN THIS EVENING PATIENT IS GOING TO SURGERY IN AM?
[2023-08-28 19:25] VITALS: BP 178/115
--- NOTE | 2023-08-29 04:10 | NUR ---
SHIFT SUMMARY *BROOK* WAS ALERT AND FULLY ORIENTED AT START OF SHIFT. HE COMPLAINS OF SOME ANXIETY RELATED TO FAMILY AND UPCOMING BKA, RELIEF WITH PM SEROQUEL. PT FOOT IS STILL PAINFUL, MEDS PER EMAR. PT KEPT NPO FROM MIDNIGHT. NO CHANGES IN CONDITION, NO ACUTE EVENTS. PT RESTING IN BED AT A LOW POSITION WITH THE CALL LIGHT IN REACH WHICH HE USES APPROPRIATELY.
[2023-08-29 04:49] VITALS: BP 146/98
[2023-08-29 05:55] LABS: Hematocrit 37.1 % (37.0-53.0); Hemoglobin 11.7 g/dL (13.5-17.5); Mean Corpuscular HGB 27.6 pg (26.0-34.0); Mean Corpuscular HGB Conc 31.5 g/dL (31.5-36.5); Mean Corpuscular Volume 88 fL (80-100); Mean Platelet Volume 10.9 fL (9.1-12.4); Platelet Count 210 K/mm3 (150-400); RDW Coefficient Variation 13.6 % (11.7-14.2); RDW Standard Deviation 43.4 fL (35.1-46.3); Red Blood Cell Count 4.24 M/mm3 (4.30-5.90); White Blood Cell Count 4.41 K/mm3 (4.00-11.30)
[2023-08-29 06:23] LABS: Albumin, Blood 2.3 g/dL (3.4-5.0); Anion Gap 4 mmol/L (6-16); Blood Urea Nitrogen 35 mg/dL (8-24); Bun/Creatinine Ratio 26.3 (12.0-20.0); CO2, Blood 29 mmol/L (21-32); Calcium, Blood 8.4 mg/dL (8.5-10.1); Chloride, Blood 108 mmol/L (98-108); Creatinine, Blood 1.33 mg/dL (0.60-1.20); Glomerular Filtration Rate 62 (60-); Glucose, Blood 87 mg/dL (70-99); Magnesium, Blood 1.7 mg/dL (1.6-2.4); Phosphorus, Blood 3.7 mg/dL (2.5-4.9); Potassium, Blood 3.7 mmol/L (3.5-5.5); Sodium, Blood 141 mmol/L (136-145)
[2023-08-29 07:42] VITALS: BP 174/105
[2023-08-29 16:33] VITALS: BP 148/77
--- NOTE | 2023-08-29 17:45 | NUR ---
SHIFT SUMMARY- PT SURGERY CANCELED AGAIN TODAY. ETHICS CONSULT PLACED BY SURGEON. LEFT A MESSAGE FOR [facility], CALLED [facility] THEY ARE AWARE OF THE CONSULT. SPOKE TO CYANIDE FURNACE OPERATOR, SHE IS AWARE THE SURGERY WAS CANCELLED AND PLACED A DRESSING ON THE WOUND TODAY THAT WILL HELP WITH SOME OF THE SMELL, PT WAS HAVING DIFFICULTY WITH THE SMELL HIS WOUND WAS EMITTING. ODOR DOES SEEM BETTER SINCE THE NEW DRESSING. PT CURRENTLY IN BED, CALL LIGHT IN REACH NO S&S OF DISTRESS NOTED. IV ABX INFUSING INTO NEW 20G LFA IV, PREVIOUS ONE DC'D D/T LEAKING.
[2023-08-29 20:58] VITALS: BP 185/110
[2023-08-29 22:32] VITALS: BP 101/54
[2023-08-30 05:19] VITALS: BP 140/84
[2023-08-30 07:59] VITALS: BP 165/100
--- NOTE | 2023-08-30 13:11 | NUR ---
Case review facilitated. Medical history, social matrix, and candidacy for local amputation services reviewed with Dr An, Dr Linares, and Dr Christianson. The principal is reported to have extant and widespread cardiological issues that put him at an elevated risk for decompensation if subjected to anesthesia. If his pathological extremity is not surgically treated however, he will undergo further deconditioning and ultimately suffer demise. While from an orthopedic standpoint the procedure is relatively common and straightforward, hazards to the patients survival could be attenuated by transferring him to a higher level of care. Dr Christianson is engaging various medical centers with cardiothorazic programs to check on bed capacity and treatment elegibility. If we are unable to successfully coordinate a transfer, the team has agreed to consider proceeding locally, since the consequences of forgoing an amputation at this point would be definitively grave and disproportionate. Thank you for this consult. Enrrique Quarles, PhD, [facility] specialized monitoring capabilities
[2023-08-30 14:51] VITALS: BP 153/97
[2023-08-30 18:55] VITALS: BP 153/97
[2023-08-30 19:44] VITALS: BP 162/95
--- NOTE | 2023-08-30 19:58 | NUR ---
REPORT GIVEN TO PAUL, , [facility]. NOTIFIED SERGIO MCLEOD THAT REPORT HAS BEEN GIVEN, AND NAME OF STAFF MEMBER I GAVE REPORT TO. SHE WILL ARRANGE TRANSPORT. WILL CONTINUE TO MONITOR PATIENT UNTIL TRANSFER.
--- NOTE | 2023-08-30 20:06 | NUR ---
SHIFT SUMMARY PATIENT CONTINUES WITH PAIN, MEDICATED PER EMAR. HE VOMITED AROUND 3:00PM AND STATES HE HAS BEEN VOMITING DAILY FOR THE PAST 3-4 DAYS AT DIFFERENT RANDOM TIMES. DR PINO AWARE, CONTINUE WITH JARVIS PRN. BED IN LOW POSITION, CALL LIGHT IN REACH. PATIENT UP AD ELVIRA IN ROOM. HE IS ABLE TO MAKE NEEDS KNOWN.
[2023-08-30 20:42] VITALS: BP 153/97
--- NOTE | 2023-08-30 21:15 | NUR ---
TRANSPORT TEAM HERE - [facility] TRANSFER PAPERWORK PROVIDED, REPORT GIVEN TO TRANSPORT TEAM.
== END 2023-08-30 21:15 | disposition short-term general hospital (02) | DRG 638 ==
LOC: ER 13:21 → MEDS 17:27 → ER 19:20 → MEDS 19:53
PROVIDERS: Anesthesiology; Internal Medicine; Nurse Practitioner Acute Care; Physician Assistant; ADMIT Internal Medicine
DX: E11.69 Type 2 diabetes mellitus with other specified complication (principal); E11.52 Type 2 diabetes mellitus with diabetic peripheral angiopathy with gangrene; I50.22 Chronic systolic (congestive) heart failure; M86.172 Other acute osteomyelitis, left ankle and foot; I42.7 Cardiomyopathy due to drug and external agent; I13.0 Hypertensive heart and chronic kidney disease with heart failure and stage 1 through stage 4 chronic kidney disease, or unspecified chronic kidney disease; L03.116 Cellulitis of left lower limb; I25.10 Atherosclerotic heart disease of native coronary artery without angina pectoris; F15.10 Other stimulant abuse, uncomplicated; E11.40 Type 2 diabetes mellitus with diabetic neuropathy, unspecified; F15.11 Other stimulant abuse, in remission; F31.9 Bipolar disorder, unspecified; E78.5 Hyperlipidemia, unspecified; M19.90 Unspecified osteoarthritis, unspecified site; G43.909 Migraine, unspecified, not intractable, without status migrainosus; I25.5 Ischemic cardiomyopathy; E11.22 Type 2 diabetes mellitus with diabetic chronic kidney disease; N18.30 Chronic kidney disease, stage 3 unspecified; D63.1 Anemia in chronic kidney disease; E11.628 Type 2 diabetes mellitus with other skin complications; Z95.1 Presence of aortocoronary bypass graft; Z86.74 Personal history of sudden cardiac arrest; Z79.4 Long term (current) use of insulin; Z79.82 Long term (current) use of aspirin; Z86.73 Personal history of transient ischemic attack (TIA), and cerebral infarction without residual deficits; Z86.711 Personal history of pulmonary embolism; Z85.828 Personal history of other malignant neoplasm of skin; Z87.19 Personal history of other diseases of the digestive system; Z87.891 Personal history of nicotine dependence; Z79.02 Long term (current) use of antithrombotics/antiplatelets; Z89.432 Acquired absence of left foot
CPT/HCPCS: 36415; 73552; 73590; 73630; 80048; 80053; 80069; 80202; 82947; 83605; 83735; 83880; 85014; 85018; 85025; 85027; 85610; 85651; 86140; 87070; 87205; 96365; 96375; 99284-25; A9270; J0360; J0690; J0696; J1644; J1815; J1940; J2405; J3010; J3370; J3475; J7030; J7050; J7120; U0002

== ENCOUNTER 2023-09-21 21:07 | Emergency (ER) | payer OTHER ==
[~2023-09-21] VITALS: Ht 170.2 cm; Wt 59.0 kg
[~2023-09-21 21:07] MED LIST changes: +ALBU2.5V5 INH; +Aspir 8181 MG PO; +BETADINE TOP; +ENTRESTO 24 MG1 EAC3 PO; +LANTUS SOL100 UNIT/1 SC; +PROBIOTIC1 EA14 PO
[2023-09-21 21:54] LABS: BASOPHILS ABSOLUTE AUTO 0.02 K/mm3 (0.00-0.23); BASOPHILS PERCENT AUTO 0 % (0-2); EOSINOPHILS ABSOLUTE AUTO 0.01 K/mm3 (0.00-0.68); EOSINOPHILS PERCENT AUTO 0 % (0-6); Hematocrit 37.3 % (37.0-53.0); Hemoglobin 11.7 g/dL (13.5-17.5); IMMATURE GRAN ABSOLUTE AUTO 0.02 K/mm3 (0.00-0.10); IMMATURE GRAN PERCENT AUTO 0 % (0-1); LYMPHOCYTES ABSOLUTE AUTO 1.36 K/mm3 (0.84-5.20); LYMPHOCYTES PERCENT AUTO 23 % (21-46); MONOCYTES ABSOLUTE AUTO 0.63 K/mm3 (0.16-1.47); MONOCYTES PERCENT AUTO 11 % (4-13); Mean Corpuscular HGB 27.6 pg (26.0-34.0); Mean Corpuscular HGB Conc 31.4 g/dL (31.5-36.5); Mean Corpuscular Volume 88 fL (80-100); Mean Platelet Volume 9.9 fL (9.1-12.4); NEUTROPHILS ABSOLUTE AUTO 3.77 K/mm3 (1.96-9.15); NEUTROPHILS PERCENT AUTO 65 % (41-73); Platelet Count 328 K/mm3 (150-400); RDW Coefficient Variation 14.5 % (11.7-14.2); RDW Standard Deviation 46.5 fL (35.1-46.3); Red Blood Cell Count 4.24 M/mm3 (4.30-5.90); White Blood Cell Count 5.81 K/mm3 (4.00-11.30)
[2023-09-21 22:43] LABS: Albumin, Blood 2.5 g/dL (3.4-5.0); Albumin/Globulin Ratio 0.5 (0.8-1.8); Bilirubin, Total 0.4 mg/dL (0.1-1.0); Calcium, Blood 8.7 mg/dL (8.5-10.1); Creatinine, Blood 1.1 mg/dL (0.60-1.20); Globulin, Blood 5.3 g/dL (2.2-4.0); Potassium, Blood 5.3 mmol/L (3.5-5.5); Total Protein, Blood 7.8 g/dL (6.4-8.2)
[2023-09-21 22:45] VITALS: BP 142/77
== END 2023-09-21 23:39 | disposition home or self-care (01) ==
LOC: ER 21:07
PROVIDERS: Student in an Organized Health Care Education/Training Program
DX: M79.605 Pain in left leg (principal); E11.65 Type 2 diabetes mellitus with hyperglycemia; R00.0 Tachycardia, unspecified; Z89.512 Acquired absence of left leg below knee; I25.10 Atherosclerotic heart disease of native coronary artery without angina pectoris; I10 Essential (primary) hypertension; E78.5 Hyperlipidemia, unspecified; F31.9 Bipolar disorder, unspecified; Z79.899 Other long term (current) drug therapy; Z79.82 Long term (current) use of aspirin; Z79.4 Long term (current) use of insulin; Z88.5 Allergy status to narcotic agent; Z95.1 Presence of aortocoronary bypass graft; Z95.5 Presence of coronary angioplasty implant and graft; Z87.891 Personal history of nicotine dependence
CPT/HCPCS: 73560-LT; 80053; 85025; 93005; 93010; 96361; 96374; 99284-25; J1815; J1885; J7030